=== PATIENT | female | born 2000 | race Caucasian/White ===

== ENCOUNTER → 2021-03-26 10:26 | Outpatient (CLI) | payer OTHER, SELFPAY ==
--- NOTE | 2021-03-26 10:29 | DI.US.S_ITS ---
PROCEDURE: US OB <= 14 WEEKS FETUS INDICATIONS: DATES OUTSIDE/PRIOR DATING DATA: Last menstrual period (LMP): Not known LMP-based estimated date of delivery (CRIS): Not applicable First dating scan (date and location): March 26, 2021 Estimated date of delivery (CRIS) from first dating scan: October 30, 2021 The calculations are made using the ultrasound CRIS of October 30, 2021 TECHNIQUE: Real-time scanning was performed of the fetus and maternal pelvic organs, with image documentation. Endovaginal scanning was also performed to better visualize the fetus and maternal ovaries. COMPARISON: None. FINDINGS: Embryo: Single living intrauterine identified. Yolk sac and pole are identified. Ben Arnold-rump length measures 2.2 centimeters corresponding to ultrasound estimated gestational age of 8 weeks 6 days. Small 3.2 x 2.0 x 0.5 and 1.3 x 0.9 x 0.9 centimeter periimplantational bleeds identified. Heart rate: 173 beats per minute Maternal organs: Probable left corpus luteal cyst. IMPRESSION: 1. Single living intrauterine with ultrasound estimated gestational age of 8 weeks 6 days corresponding to ultrasound CRIS of October 30, 2021. 2. Probable small left course pulse luteal cyst. Dictated by: Ruba Penaloza MD, PhD on 03/26/2021 at 12:10 We strive to produce accurate, complete, and clear reports of imaging services. To assist us in improving patient care, this report was composed using standard report templates and voice recognition software. Therefore, it may contain abnormal punctuation, misrecognitions, insertions and/or omissions. Occasional wrong-word or sound-alike substitutions may occur. Though we review the report and make efforts to correct it, we do recommend that the report be read carefully in proper context to recognize any text inaccuracies. Approved by: Ruba Penaloza MD, PhD on 03/26/2021 at 12:12
[2021-03-26 11:44] LABS: Add Manual Diff / Slide Review NO; Basophils Absolute Auto 0 /uL (0-100); Basophils Percent Auto 0.6 % (0-2); Eosinophils Absolute Auto 200 /uL (0-450); Eosinophils Percent Auto 2.5 % (2-4); Hematocrit 37.9 % (36-46); Hemoglobin 13.3 g/dL (12.0-16.0); Lymphocytes Absolute Auto 1500 /uL (1100-4500); Lymphocytes Percent Auto 18.5 % (25-40); Mean Corpuscular HGB Conc 35.1 % (30-36); Mean Corpuscular Hemoglobin 29.9 PG (26-34); Mean Corpuscular Volume 85.3 fL (80-100); Monocytes Absolute Auto 400 /uL (0-900); Monocytes Percent Auto 5.4 % (3-14); Neutrophils Absolute Auto 5900 /uL (1500-7000); Platelet Count 262 X10^3/uL (150-400); Red Blood Cell Count 4.45 X10^6/uL (4.0-5.2); Red Cell Distribution Width 13.3 % (11.6-14.8); White Blood Cell Count 8.1 X10^3/uL (4.5-11.0)
[2021-03-26 11:49] LABS: Appearance Urine UA SL CLOUDY; Bilirubin Urine UA NEGATIVE (NEGATIVE); Color Urine UA YELLOW; Glucose Urine UA NEGATIVE (Negative); Ketones Urine UA TRACE (NEGATIVE); Leukocyte Esterase Urine UA TRACE (NEGATIVE); Nitrite Urine UA NEGATIVE (Negative); Occult Blood Urine UA 1+ (Negative); Protein Urine UA TRACE (Negative); Specific Gravity Urine UA 1.025 (1.000-1.035); Urobilinogen Urine UA 0.2 E.U./dL (0.2)
[2021-03-26 11:53] LABS: pH Urine UA 5.5 (4.5-8.0)
[2021-03-26 12:01] LABS: Bacteria Urine Moderate (10-30); Culture Indicated Urine Specimen Cultured; Mucus Urine 2+ (Negative); RBC Urine 1-5/HPF (0-5/HPF); Squamous Epithelial Cell Urine 1-5 /HPF (0-5/HPF); WBC Urine 10-30/HPF (0-5/HPF)
[2021-03-26 15:09] LABS: Hepatitis B Surface Antigen NEGATIVE s/c (NEGATIVE); Rubella Antibody IgG 5.1 IU/mL (>15)
[2021-03-26 15:27] LABS: HIV 1 & 2 Ab/Ag 4th Gen Combo NEGATIVE (NEGATIVE); Hep C Virus Ab w/Reflex Quant NEGATIVE s/c (NEGATIVE)
[2021-03-27 07:15] LABS: Varicella IgG Antibody 245 index (Immune >165)
[2021-03-27 07:36] LABS: RPR Screen Non Reactive (Non Reactive)
== END ==
PROVIDERS: Referring Provider Obstetrics & Gynecology; Visit Provider Obstetrics & Gynecology
DX: Z36.87 Encounter for antenatal screening for uncertain dates (principal); Z3A.08 8 weeks gestation of pregnancy
CPT/HCPCS: 36415; 76801; 76817; 80055; 81003; 81015; 86787; 86803; 86850; 86900; 86901; 87086; 87389

== ENCOUNTER 2021-03-29 17:05 | Emergency (ER) | payer OTHER, SELFPAY ==
[2021-03-29] VITALS (10 sets, daily range): BP systolic 112–134; BP diastolic 65–88; PULSE 61–83; RESP 9–28; TEMP 36.5; O2SAT 95–100; BMI 26.1
[2021-03-29] MEDS: ONDANSETRON 4 MG/2 ML INJ IV (18:04)
[2021-03-29 18:05] LABS: Add Manual Diff / Slide Review NO; Basophils Absolute Auto 0 /uL (0-100); Basophils Percent Auto 0.3 % (0-2); Eosinophils Absolute Auto 200 /uL (0-450); Eosinophils Percent Auto 2.3 % (2-4); Lymphocytes Absolute Auto 1400 /uL (1100-4500); Lymphocytes Percent Auto 13.6 % (25-40); Mean Corpuscular HGB Conc 35.1 % (30-36); Mean Corpuscular Hemoglobin 29.7 PG (26-34); Mean Corpuscular Volume 84.5 fL (80-100); Monocytes Absolute Auto 500 /uL (0-900); Monocytes Percent Auto 4.8 % (3-14); Neutrophils Absolute Auto 8100 /uL (1500-7000); Platelet Count 284 X10^3/uL (150-400); Red Blood Cell Count 4.73 X10^6/uL (4.0-5.2); Red Cell Distribution Width 12.8 % (11.6-14.8); White Blood Cell Count 10.3 X10^3/uL (4.5-11.0)
--- NOTE | 2021-03-29 18:08 | PC.NURSE ---
Patient is about 8 weeks and reports she has been vomiting for the duration of . Recently saw OBGYN who prescribed doxylamine and B6 but has been unable to start prescription, tried another medication from [facility] which made nausea worse but is unsure of the name. Reports of 8 emesis today, 6 have had dark red thickness, provider was made aware of similar episodes at appt on 03/23 but patient reports episodes are happening more frequently.
[2021-03-29 18:11] LABS: Alanine Aminotransferase 11 IU/L (<35); Albumin 4.6 g/dL (3.5-5.0); Albumin Globulin Ratio 1.4 (1.0-2.8); Alkaline Phosphatase 57 U/L (38-126); Aspartate Aminotransferase 21 IU/L (14-36); BUN Creatinine Ratio 14.6 (6-22); Bilirubin Total 0.6 mg/dL (0.2-1.3); Blood Urea Nitrogen 7 mg/dL (7-17); Calcium 9.9 mg/dL (8.4-10.2); Carbon Dioxide 20 mmol/L (22-32); Chloride 106 mmol/L (98-107); Estimated Glomerular Filt Rate > 60.0 mL/min (>60); Globulin 3.2 g/dL (1.7-4.1); Glucose 88 mg/dL (70-100); HEMOLYSIS 29 (0-50); Potassium 4.2 mmol/L (3.4-5.1); Sodium 136 mmol/L (137-145); Total Protein 7.8 g/dL (6.3-8.2)
[2021-03-29 19:02] LABS: RBC Urine None Seen (0-5/HPF); Squamous Epithelial Cell Urine 10-30 /HPF (0-5/HPF); WBC Urine None Seen (0-5/HPF)
[2021-03-29 19:03] LABS: Amorphous Sediment Urine 2+; Bacteria Urine Many (>30); Culture Indicated Urine Cult Not Indicated; Mucus Urine 3+ (Negative)
--- NOTE | 2021-03-29 20:15 | ED.GIBLEED ---
HPI - GI Bleed General Chief complaint: GI Bleed Stated complaint: THROWING UP BLOOD AND DIZZY Time Seen by Provider: 03/29/21 20:13 Source: patient Mode of arrival: Ambulatory History of Present Illness HPI Narrative: Patient is a 20-year-old female currently 9 weeks presenting today with nausea vomiting. She says that she has been nauseous entire she has been vomiting intermittently today she threw up 8 times. She thought she saw some dark black stuff representing blood but denies any bright red emesis. She has some very mild by lateral upper abdominal discomfort but no lower abdominal pain or vaginal bleeding. She had ultrasound done on 03/26/2021 here at this hospital which does show an IUP. She denies any fever or chills. She still feels little dizzy and lightheaded. She was started on B6 supplements to help with her nausea which she says does not help. She has a 1st appointment with OBGYN. Related Data Home Medications Medication Instructions Recorded Confirmed doxylamine succinate 25 mg tablet 50 mg PO BEDTIME PRN tab 03/23/21 03/23/21 prenat.vits,ulices,pwa-nmzj-inudr 1 tab PO DAILY 03/23/21 03/23/21 pyridoxine (vitamin B6) 50 mg 50 mg PO DAILY 03/23/21 03/23/21 tablet Previous Rx's Medication Instructions Recorded ondansetron 4 mg disintegrating 4 mg PO Q8H PRN #10 tab 03/29/21 tablet Allergies Allergy/AdvReac Type Severity Reaction Status Date / Time No Known Drug Allergies Allergy Verified 03/23/21 14:00 Review of Systems Review of Systems Narrative: GENERAL: Denies chills, fatigue, malaise, fever, sweats, travel HEENT: Denies sinus pain, ear pain, sore throat, difficulty swallowing, neck pain RESPIRATORY: Denies dyspnea, cough, wheezing, hemoptysis, sputum. CARDIOVASCULAR: Denies chest pain, palpitations, orthopnea, edema GASTROINTESTINAL: See HPI : Denies dysuria, frequency, incontinence, hematuria, urinary retention, flank pain. MUSCULOSKELETAL: Denies weakness, joint pain, or bony pain SKIN: No rash, no erythema, no pruritus NEUROLOGIC: Denies weakness, dizziness, headache, numbness, change in speech, confusion PSYCHIATRIC: No concerning psychosocial issues. 12 point review of systems is negative except for those stated above and HPI Patient History Social History marital status: unmarried,single (living seperately for now, plans to move in) household members: none lives independently: Yes caregiver/support person: Yes housing: other ([employer]) pets and animals: No education level: other () occupational status: employed current occupational exposures/hazards: No travel history: over 6 months ago ([place] for 2 months) seatbelt use: always water heater temp set < 120 deg: Yes (will check) working smoke detector in home: Yes fire extinguisher in home: Yes carbon monox detector in home: Yes firearms in home: No do you feel safe at home: Yes Smoking Status: Former smoker alcohol intake: former substance use type: does not use well-balanced diet: daily or most days daily servings fruits/ve-1 caffeine: No eating out: 1-3 times/week Type(s) of exercise: walking Smoking Status: Former smoker Substance Use Type: does not use Exam Initial Vital Signs Initial Vital Signs: Vital Signs Temperature 97.7 F 03/29/21 17:28 Pulse Rate 81 03/29/21 17:28 Respiratory Rate 18 03/29/21 17:28 Blood Pressure 134/88 03/29/21 17:28 Pulse Oximetry 98 03/29/21 17:28 GENERAL: Alert 20-year-old femaleand in no acute distress. HEENT: Head atraumatic,EOMI, pupils reactive, face symmetric, [moist] mucous membranes CARDIOVASCULAR: Regular rate and rhythm without murmurs, rubs or gallops. RESPIRATORY: Breath sounds equal bilaterally, no wheezes rales or rhonchi. ABDOMEN: Soft, nontender. Normoactive bowel sounds all 4 quadrants. No guarding or rebound. : No CVA tenderness EXTREMITIES: Normal range of motion, no clubbing or edema. Neurovascularly intact NEUROLOGICAL: Alert and oriented x4.Normal gait and speech. SKIN: Warm, dry, no laceration, no petechiae, no rashes or lesions. Course Orders Ordered: ED Orders 03/29/21 17:52 Complete Blood Count AUTO DIFF Stat Comprehensive Metabolic Panel Stat 03/29/21 18:17 Urine Microscopic Stat Discontinued Medications Famotidine (Famotidine 20 Mg/2 Ml Vial) 20 mg IV NOW RAYMOND Last Admin: 03/29/21 20:53 Dose: 20 mg Documented by: EVON Sodium Chloride (Normal Saline 0.9%) 1,000 mls @ 1,000 mls/hr IV BOLUS ONE Stop: 03/29/21 21:24 Last Admin: 03/29/21 20:53 Dose: 1,000 mls/hr Documented by: EVON Ondansetron HCl (Ondansetron 4 Mg/2 Ml Inj) 4 mg IV NOW ONE Stop: 03/29/21 17:39 Last Admin: 03/29/21 18:04 Dose: 4 mg Documented by: NOAH Ondansetron HCl (Ondansetron 4 Mg Odt Prepack) 1 bottle MISC SEEINSTR ONE Stop: 03/29/21 21:43 Last Admin: 03/29/21 21:46 Dose: 1 bottle Documented by: NOAH Vital Signs Vital signs: Vital Signs - 8 hr 03/29/21 17:28 03/29/21 18:03 03/29/21 18:06 Temperature 97.7 F Pulse Rate 81 83 76 Respiratory Rate 18 28 H 9 L Blood Pressure 134/88 124/83 Pulse Oximetry 98 97 03/29/21 18:30 03/29/21 19:00 03/29/21 19:30 Temperature Pulse Rate 64 65 66 Respiratory Rate 15 26 H 21 Blood Pressure 121/74 119/70 112/66 Pulse Oximetry 100 100 95 03/29/21 20:00 03/29/21 20:30 03/29/21 21:00 Temperature Pulse Rate 66 69 61 Respiratory Rate 15 24 17 Blood Pressure 125/71 128/69 128/66 Pulse Oximetry 100 100 100 03/29/21 21:30 Temperature Pulse Rate 63 Respiratory Rate 12 Blood Pressure 120/65 Pulse Oximetry 100 MDM - GI Bleed Lab Data Result diagrams: 03/29/21 17:52 03/29/21 17:52 Labs: Lab Results 03/29/21 03/29/21 03/29/21 Range/Units 17:52 17:52 18:17 WBC 10.3 (4.5-11.0) X10^3/uL RBC 4.73 (4.0-5.2) X10^6/uL Hgb 14.0 (12.0-16.0) g/dL Hct 40.0 (36-46) % MCV 84.5 (80-100) fL MCH 29.7 (26-34) PG MCHC 35.1 (30-36) % RDW 12.8 (11.6-14.8) % Plt Count 284 (150-400) X10^3/uL Neut % (Auto) 79.0 H (50-75) % Lymph % (Auto) 13.6 L (25-40) % [place] % (Auto) 4.8 (3-14) % Eos % (Auto) 2.3 (2-4) % Baso % (Auto) 0.3 (0-2) % Neut # (Auto) 8100 H (5125-6325) /uL Lymph # (Auto) 1400 (1883-1498) /uL [place] # (Auto) 500 (0-900) /uL Eos # (Auto) 200 (0-450) /uL Baso # (Auto) 0 (0-100) /uL Sodium 136 L (137-145) mmol/L Potassium 4.2 (3.4-5.1) mmol/L Chloride 106 (98-107) mmol/L Carbon Dioxide 20 L (22-32) mmol/L BUN 7 (7-17) mg/dL Creatinine 0.48 L (0.52-1.04) mg/dL Estimated GFR > 60.0 (>60) mL/min BUN/Creatinine Ratio 14.6 (6-22) Glucose 88 (70-100) mg/dL Calcium 9.9 (8.4-10.2) mg/dL Total Bilirubin 0.6 (0.2-1.3) mg/dL AST 21 (14-36) IU/L ALT 11 (<35) IU/L Alkaline Phosphatase 57 (38-126) U/L Total Protein 7.8 (6.3-8.2) g/dL Albumin 4.6 (3.5-5.0) g/dL Globulin 3.2 (1.7-4.1) g/dL Albumin/Globulin Ratio 1.4 (1.0-2.8) Urine RBC None seen (0-5/HPF) Urine WBC None seen (0-5/HPF) Ur Squamous Epith Cells 10-30 /hpf H D (0-5/HPF) Amorphous Sediment 2+ Urine Bacteria Many (>30) H (None) Urine Mucus 3+ H (Negative) Ur Culture Indicated? Cult not indicated Urine Dip Bedside Urine Glucose Negative Bedside Urine Bilirubin - Negative Bedside Urine Ketone +++ 80 Urine Specific [place] 1.030 Bedside Urine Occult Blood +/- Bedside Urine pH 5.5 Bedside Urine Protein + 30 Bedside Urine Urobilinogen - Negative Bedside Urine Nitrite - Negative Bedside Urine Leukocytes - Negative Esterase MDM Narrative Medical decision making narrative: Patient's room feeling much better after fluids antiemetics in antacid medication. No longer having any abdominal pain no need to repeat ultrasound was done a few days ago. Symptoms are most consistent with hyperemesis gravidarum. She is requesting something more for nausea I will give her Zofran I have discussed with her possible side effects and she understands. Discharge Plan Departure Patient Disposition: Home Clinical Impression: Hyperemesis gravidarum Instructions: DI for Hyperemesis Gravidarum Activity Restrictions/Additional Instructions: 1) You have been diagnosed with hyperemesis gravidarum 2) What to do: Drink frequent but small amounts of fluids. I recommend Gatorade or a Gatorade-like product, as it has small amounts of sugar and salts that improve fluid retention. 3) Take medications as directed--> SENT TO [facility] [place] Zofran 4 mg every 8 hours if needed for nausea or vomiting, please try to take paroxetine 1st 4) Follow up with your primary care provider in 2-3 days Please follow-up with OBGYN as scheduled 5) Return to ER if you should have any new or worsening symptoms such as, unable to hold down fluids despite use of anti-nausea medications and the small volume oral rehydration strategy. Prescriptions: New ondansetron 4 mg tablet,disintegrating 4 mg PO Q8H PRN (Reason: nausea and vomiting) Qty: 10 0RF No Action prenat.vits,ulices,yun-kyfh-lbyht Tablet 1 tab PO DAILY 0RF doxylamine succinate 25 mg tablet 50 mg PO BEDTIME PRN0RF pyridoxine (vitamin B6) 50 mg tablet 50 mg PO DAILY 0RF Referrals: Miscellaneous,Doctor, MD [Primary Care Provider] -
[2021-03-29] MEDS: FAMOTIDINE 20 MG/2 ML VIAL IV (20:53)
[2021-03-29] MEDS: SODIUM CHLORIDE 0.9% 1,000 ML 1000 ML IV (20:53)
[2021-03-29] MEDS: ONDANSETRON 4 MG ODT PREPACK 1 BOTTLE MISC (21:46)
== END 2021-03-29 21:52 | disposition home or self-care (01) ==
PROVIDERS: Emergency Medicine; Emergency Provider Emergency Medicine
DX: O21.0 Mild hyperemesis gravidarum (principal); Z3A.09 9 weeks gestation of pregnancy; K92.0 Hematemesis
CPT/HCPCS: 36415; 80053; 81003; 81015; 85025; 96361; 96374; 96375; 99284; J2405

== ENCOUNTER → 2021-04-14 17:08 | Outpatient (CLI) | payer OTHER, SELFPAY ==
[2021-04-14 17:34] LABS: COVID19 -Nasal RAPID POSITIVE (Negative)
== END ==
PROVIDERS: Referring Provider Nurse Practitioner Family; Visit Provider Nurse Practitioner Family
DX: U07.1 COVID-19 (principal); Z20.822 Contact with and (suspected) exposure to COVID-19
CPT/HCPCS: 87635

== ENCOUNTER → 2021-05-29 17:01 | Outpatient (CLI) | payer OTHER, SELFPAY ==
[2021-06-01 15:26] LABS: Calc Gestational Age Ultrasound (.); Estriol, Free 1.43 ng/mL (.); Inhibin A, Dimeric 138.48 pg/mL (.); Inhibin A, MoM 0.84 (.); Maternal Ethnicity Caucasian (.); Maternal Weight 141 lbs (.); Number of Fetuses No (.); OSBR Risk 1 IN 10000 (.); Results Report (.); Test Results *Screen Negative* (.); hCG, MoM 1.46 (.); hCG, Serum 44689 mIU/mL (.)
== END ==
PROVIDERS: Referring Provider Obstetrics & Gynecology; Visit Provider Obstetrics & Gynecology
DX: Z34.02 Encounter for supervision of normal first pregnancy, second trimester (principal); Z3A.18 18 weeks gestation of pregnancy
CPT/HCPCS: 36415; 82105; 82677; 84702; 86336

== ENCOUNTER 2021-06-18 11:18 | Emergency (ER) | payer OTHER, SELFPAY ==
[2021-06-18] VITALS (15 sets, daily range): BP systolic 96–123; BP diastolic 50–77; PULSE 70–101; RESP 18; TEMP 37; O2SAT 96–100
--- NOTE | 2021-06-18 11:28 | DI.RAD.S_ITS ---
PROCEDURE: XR CHEST 1V INDICATIONS: chest pain TECHNIQUE: One view of the chest was acquired. COMPARISON: None. FINDINGS: Surgical changes and devices: None. Lungs and pleura: Lungs are clear. No pleural effusions or pneumothorax. Mediastinum: Mediastinal contours appear normal. Heart size is normal. Bones and chest wall: No suspicious bony lesions. Overlying soft tissues appear unremarkable. IMPRESSION: No acute cardiopulmonary abnormality. Dictated by: Howie Da Silva M.D. on 06/18/2021 at 12:22 Approved by: Howie Da Silva M.D. on 06/18/2021 at 12:22
[2021-06-18] MEDS: SODIUM CHLORIDE 0.9% 1,000 ML 1000 ML IV ×2 (11:45→13:47)
[2021-06-18 11:47] LABS: Add Manual Diff / Slide Review NO; Basophils Absolute Auto 0 /uL (0-100); Basophils Percent Auto 0.3 % (0-2); Eosinophils Absolute Auto 100 /uL (0-450); Eosinophils Percent Auto 1.2 % (2-4); Hematocrit 35.7 % (36-46); Hemoglobin 11.8 g/dL (12.0-16.0); Lymphocytes Absolute Auto 1500 /uL (1100-4500); Lymphocytes Percent Auto 12.7 % (25-40); Mean Corpuscular HGB Conc 33.2 % (30-36); Mean Corpuscular Hemoglobin 29.4 PG (26-34); Mean Corpuscular Volume 88.5 fL (80-100); Monocytes Absolute Auto 700 /uL (0-900); Monocytes Percent Auto 6.2 % (3-14); Neutrophils Absolute Auto 9500 /uL (1500-7000); Neutrophils Percent Auto 79.6 % (50-75); Platelet Count 299 X10^3/uL (150-400); Red Blood Cell Count 4.04 X10^6/uL (4.0-5.2); Red Cell Distribution Width 13.3 % (11.6-14.8); White Blood Cell Count 11.9 X10^3/uL (4.5-11.0)
[2021-06-18 11:57] LABS: HEMOLYSIS < 15 (0-50); Sodium 135 mmol/L (137-145)
[2021-06-18 12:00] LABS: Alanine Aminotransferase 17 IU/L (<35); Albumin 4.2 g/dL (3.5-5.0); Albumin Globulin Ratio 1.2 (1.0-2.8); Alkaline Phosphatase 60 U/L (38-126); Aspartate Aminotransferase 23 IU/L (14-36); BUN Creatinine Ratio 21.3 (6-22); Bilirubin Total 0.2 mg/dL (0.2-1.3); Blood Urea Nitrogen 10 mg/dL (7-17); Calcium 9.4 mg/dL (8.4-10.2); Carbon Dioxide 26 mmol/L (22-32); Chloride 104 mmol/L (98-107); Creatine Kinase < 20 U/L (30-135); Estimated Glomerular Filt Rate > 60.0 mL/min (>60); Globulin 3.6 g/dL (1.7-4.1); Glucose 73 mg/dL (70-100); Lipase 123 U/L (23-300); Magnesium 1.8 mg/dL (1.6-2.3); Total Protein 7.8 g/dL (6.3-8.2)
[2021-06-18 12:11] LABS: Troponin I < 0.012 ng/mL (0.01-0.034)
--- NOTE | 2021-06-18 13:43 | DI.US.S_ITS ---
PROCEDURE: US OB LIMITED INDICATIONS: PAIN OUTSIDE/PRIOR DATING DATA: Last menstrual period (LMP): Uncertain LMP-based estimated date of delivery (CRIS): Uncertain First dating scan (date and location): 03/26/2021 Estimated date of delivery (CRIS) from first dating scan: 10/30/2021. The calculations are made using the ultrasound CRIS of 10/30/2021. TECHNIQUE: Real-time scanning was performed of the fetus, with image documentation. COMPARISON: None. FINDINGS: A single living intrauterine gestation is present. Presentation: Vertex. Placenta: Placental position is posterior, without previa. Amniotic fluid index: 15.3 cm, normal range is 5-24 cm. heart rate: 136 beats per minute. Maternal cervical canal: 3.2 cm long. Normal lower limit is 2.5 cm. Estimated gestational age from initial scan: 20 weeks 6 days. IMPRESSION: Single live intrauterine . No gross abnormality identified. Dictated by: Howie Da Silva M.D. on 06/18/2021 at 14:45 Approved by: Howie Da Silva M.D. on 06/18/2021 at 14:47
--- NOTE | 2021-06-18 13:43 | ED_ITS ---
HPI - Dizziness General Chief Complaint: Syncope Stated Complaint: Dizziness for 2 days Time Seen by Provider: 06/18/21 13:38 Source: patient Mode of arrival: Ambulatory History of Present Illness HPI Narrative: 20-year-old female who is 21 weeks presenting with dizziness lightheadedness. She says she feels dizzy and lightheaded every time she stands up his she is also having some mild right upper quadrant pain. She has been feeling nauseous throughout her the actually has been getting a little bit better. She has thrown up a couple of times. She has not had any vaginal bleeding. Fever or chills. She has not passed out. She has been able to keep mostly water down Related Data Home Medications Medication Instructions Recorded Confirmed doxylamine succinate 25 mg tablet 50 mg PO BEDTIME PRN tab 03/23/21 05/29/21 prenat.vits,ulices,sld-scft-dwibb 1 tab PO DAILY 03/23/21 05/29/21 pyridoxine (vitamin B6) 50 mg 50 mg PO DAILY 03/23/21 05/29/21 tablet Previous Rx's Medication Instructions Recorded ondansetron 4 mg disintegrating 4 mg PO Q6H PRN #20 tab 04/01/21 tablet Allergies Allergy/AdvReac Type Severity Reaction Status Date / Time No Known Drug Allergies Allergy Verified 06/18/21 11:30 Review of Systems Review of Systems Narrative: GENERAL: Denies chills, fatigue, malaise, fever, sweats, travel HEENT: Denies sinus pain, ear pain, sore throat, difficulty swallowing, neck pain RESPIRATORY: Denies dyspnea, cough, wheezing, hemoptysis, sputum. CARDIOVASCULAR: Denies chest pain, palpitations, orthopnea, edema GASTROINTESTINAL: See HPI : Denies dysuria, frequency, incontinence, hematuria, urinary retention, flank pain. MUSCULOSKELETAL: Denies weakness, joint pain, or bony pain SKIN: No rash, no erythema, no pruritus NEUROLOGIC: Denies weakness, dizziness, headache, numbness, change in speech, confusion PSYCHIATRIC: No concerning psychosocial issues. 12 point review of systems is negative except for those stated above and HPI Patient History Social History marital status: unmarried,single (living seperately for now, plans to move in) household members: none lives independently: Yes caregiver/support person: Yes housing: other ([employer]) pets and animals: No education level: other () occupational status: employed current occupational exposures/hazards: No travel history: over 6 months ago ([place] for 2 months) seatbelt use: always water heater temp set < 120 deg: Yes (will check) working smoke detector in home: Yes fire extinguisher in home: Yes carbon monox detector in home: Yes firearms in home: No do you feel safe at home: Yes Smoking Status: Former smoker alcohol intake: former substance use type: does not use well-balanced diet: daily or most days daily servings fruits/ve-1 caffeine: No eating out: 1-3 times/week Type(s) of exercise: walking Smoking Status: Former smoker Substance Use Type: does not use Exam Initial Vital Signs Initial Vital Signs: Vital Signs Temperature 98.6 F 06/18/21 11:25 Pulse Rate 86 06/18/21 11:25 Respiratory Rate 18 06/18/21 11:25 Blood Pressure 123/77 06/18/21 11:25 Pulse Oximetry 100 06/18/21 11:25 GENERAL: Well-appearing, well-nourished and in no acute distress. HEENT: Head atraumatic,EOMI, pupils reactive, face symmetric, moist mucous membranes CARDIOVASCULAR: Regular rate and rhythm without murmurs, rubs or gallops. RESPIRATORY: Breath sounds equal bilaterally, no wheezes rales or rhonchi. ABDOMEN: Soft, gravid tender right upper quadrant no guarding or rebound : No CVA tenderness EXTREMITIES: Normal range of motion, no clubbing or edema. Neurovascularly intact NEUROLOGICAL: Alert and oriented x4. Ambulatory to the restroom without diffi culty SKIN: Warm, dry, no laceration, no petechiae, no rashes or lesions. Course Orders Ordered: ED Orders 06/18/21 11:28 XR chest 1V Stat EKG-12 Lead Stat 06/18/21 11:40 Complete Blood Count AUTO DIFF Stat Comprehensive Metabolic Panel Stat Lipase Stat Magnesium Stat Troponin & CK Cardiac Panel Stat 06/18/21 13:43 US OB limited Stat US abdomen limited Stat Discontinued Medications Sodium Chloride (Normal Saline 0.9%) 1,000 mls @ 1,000 mls/hr IV BOLUS ONE Stop: 06/18/21 12:27 Last Infusion: 06/18/21 13:19 Dose: 0 mls/hr Documented by: Admin: 06/18/21 11:45 Dose: 1,000 mls/hr Documented by: CHASITY Sodium Chloride (Normal Saline 0.9%) 1,000 mls @ 1,000 mls/hr IV BOLUS ONE Stop: 06/18/21 14:42 Last Infusion: 06/18/21 15:08 Dose: 0 mls/hr Documented by: Admin: 06/18/21 13:47 Dose: 1,000 mls/hr Documented by: EVON Vital Signs Vital signs: Vital Signs - 8 hr 06/18/21 11:46 06/18/21 12:00 06/18/21 13:05 Pulse Rate 99 H 88 Respiratory Rate 18 Blood Pressure 117/57 L 114/55 L Pulse Oximetry 96 98 99 06/18/21 13:06 06/18/21 13:30 06/18/21 13:49 Pulse Rate 90 78 73 Respiratory Rate 18 18 Blood Pressure 112/58 L 105/58 L 104/58 L Pulse Oximetry 99 100 100 06/18/21 14:00 06/18/21 14:30 06/18/21 14:45 Pulse Rate 70 81 92 H Respiratory Rate 18 Blood Pressure 96/50 L 109/59 L Pulse Oximetry 100 100 100 06/18/21 15:00 06/18/21 15:05 06/18/21 15:30 Pulse Rate 88 84 77 Respiratory Rate 18 18 Blood Pressure 112/59 L 114/56 L Pulse Oximetry 100 100 99 06/18/21 16:00 Pulse Rate 79 Respiratory Rate 18 Blood Pressure 112/57 L Pulse Oximetry 100 MDM - Dizziness Lab Data Result diagrams: 06/18/21 11:40 06/18/21 11:40 Labs: Lab Results 06/18/21 06/18/21 Range/Units 11:40 11:40 WBC 11.9 H (4.5-11.0) X10^3/uL RBC 4.04 (4.0-5.2) X10^6/uL Hgb 11.8 L (12.0-16.0) g/dL Hct 35.7 L (36-46) % MCV 88.5 (80-100) fL MCH 29.4 (26-34) PG MCHC 33.2 (30-36) % RDW 13.3 (11.6-14.8) % Plt Count 299 (150-400) X10^3/uL Neut % (Auto) 79.6 H (50-75) % Lymph % (Auto) 12.7 L (25-40) % [place] % (Auto) 6.2 (3-14) % Eos % (Auto) 1.2 L (2-4) % Baso % (Auto) 0.3 (0-2) % Neut # (Auto) 9500 H (1473-6588) /uL Lymph # (Auto) 1500 (3989-2461) /uL [place] # (Auto) 700 (0-900) /uL Eos # (Auto) 100 (0-450) /uL Baso # (Auto) 0 (0-100) /uL Sodium 135 L (137-145) mmol/L Potassium 4.0 (3.4-5.1) mmol/L Chloride 104 (98-107) mmol/L Carbon Dioxide 26 (22-32) mmol/L BUN 10 (7-17) mg/dL Creatinine 0.47 L (0.52-1.04) mg/dL Estimated GFR > 60.0 (>60) mL/min BUN/Creatinine Ratio 21.3 (6-22) Glucose 73 (70-100) mg/dL Calcium 9.4 (8.4-10.2) mg/dL Magnesium 1.8 (1.6-2.3) mg/dL Total Bilirubin 0.2 (0.2-1.3) mg/dL AST 23 (14-36) IU/L ALT 17 (<35) IU/L Alkaline Phosphatase 60 (38-126) U/L Total Creatine Kinase < 20 L (30-135) U/L CK-MB (CK-2) TNP CK-MB (CK-2) Rel Index TNP Troponin I < 0.012 (0.01-0.034) ng/mL Total Protein 7.8 (6.3-8.2) g/dL Albumin 4.2 (3.5-5.0) g/dL Globulin 3.6 (1.7-4.1) g/dL Albumin/Globulin Ratio 1.2 (1.0-2.8) Lipase 123 (23-300) U/L Urine Dip Bedside Urine Glucose Negative Bedside Urine Bilirubin - Negative Bedside Urine Ketone - Negative Urine Specific [place] 1.015 Bedside Urine Occult Blood - Negative Bedside Urine pH 7.5 Bedside Urine Protein - Negative Bedside Urine Urobilinogen - Negative Bedside Urine Nitrite - Negative Bedside Urine Leukocytes - Negative Esterase Imaging Data US - abdomen: Radiologist's Impression: PROCEDURE:? US ABDOMEN LIMITED ? INDICATIONS:? RUQ PAIN ? TECHNIQUE:? Real-time scanning was performed of the abdominal and retroperitoneal organs, with image documentation.? ? COMPARISON:? None. ? FINDINGS:? ? Liver:? The liver is normal with no intrahepatic biliary ductal dilatation or mass. ? Gallbladder:? Normal with no stones.? No wall thickening or pericholecystic fluid. ? Biliary ducts:? Common bile duct is normal measuring 2.9 mm. ? Pancreas:? Visualized portions of the pancreas are sonographically normal.? ? Kidneys:? The right kidney measures 11.0 cm in length.? Cortical thickness is 1.9 cm.? There is moderate hydronephrosis of the right kidney.? A right ureteral jet is seen. ? IMPRESSION:? Moderate right hydronephrosis likely related to gravid state. ? ? Dictated by: Howie Da Silva M.D. on 06/18/2021 at 14:42 ? ? US - OB: Radiologist's Impression: PROCEDURE:? US OB LIMITED ? INDICATIONS:? PAIN ? OUTSIDE/PRIOR DATING DATA:? Last menstrual period (LMP):? Uncertain LMP-based estimated date of delivery (CRIS):? Uncertain First dating scan (date and location):? 03/26/2021 Estimated date of delivery (CRIS) from first dating scan:? 10/30/2021. The calculations are made using the ultrasound CRIS of 10/30/2021.? ? TECHNIQUE: Real-time scanning was performed of the fetus, with image documentation.? ? COMPARISON:? None. ? FINDINGS:? A single living intrauterine gestation is present.? Presentation:? Vertex.? Placenta:? Placental position is posterior, without previa.? ? Amniotic fluid index:? 15.3 cm, normal range is 5-24 cm. heart rate:? 136 beats per minute.? Maternal cervical canal:? 3.2 cm long.? Normal lower limit is 2.5 cm.? Estimated gestational age from initial scan:? 20 weeks 6 days.? ? ? IMPRESSION:? Single live intrauterine .? No gross abnormality identified. ? ? Dictated by: Howie Da Silva M.D. on 06/18/2021 at 14:45 ? ? Approved by: Howie Da Silva M.D. on 06/18/2021 at 14:47 ? ECG Data Interpretation: Normal sinus rhythm rate 90 p.r. interval 122 QRS [address] changes or T- wave inversions MDM Narrative Medical decision making narrative: Patient has received 2 L of IV fluids she is feeling a bit better. She has not passed out. Blood work is overall reassuring no sign of infection. She is tolerating fluid as well. Discharge Plan Departure Patient Disposition: Home Clinical Impression: Abdominal pain affecting Instructions: DI for Syncope in Adults (Fainting), DI for Abdominal Pain-Adult Activity Restrictions/Additional Instructions: *You have been diagnosed with abdominal pain and *What to do: Increase fluid intake it may be causing some of her dizziness. Blood work and ultrasound are reassuring. No sign of infection *Continue to take medications as directed *Follow up with your primary care provider in 2-3 days or call [phone] *Return to ER if you should have vaginal bleeding increased pain passing out dizziness or any new, worsening or concerning symptoms Prescriptions: No Action ondansetron 4 mg tablet,disintegrating 4 mg PO Q6H PRN (Reason: nausea and vomiting) Qty: 20 4RF prenat.vits,ulices,ghs-jxef-jmmtn Tablet 1 tab PO DAILY 0RF doxylamine succinate 25 mg tablet 50 mg PO BEDTIME PRN0RF pyridoxine (vitamin B6) 50 mg tablet 50 mg PO DAILY 0RF Referrals: Gustavo Metz MD [Primary Care Provider] -
--- NOTE | 2021-06-18 13:43 | DI.US.S_ITS ---
PROCEDURE: US ABDOMEN LIMITED INDICATIONS: RUQ PAIN TECHNIQUE: Real-time scanning was performed of the abdominal and retroperitoneal organs, with image documentation. COMPARISON: None. FINDINGS: Liver: The liver is normal with no intrahepatic biliary ductal dilatation or mass. Gallbladder: Normal with no stones. No wall thickening or pericholecystic fluid. Biliary ducts: Common bile duct is normal measuring 2.9 mm. Pancreas: Visualized portions of the pancreas are sonographically normal. Kidneys: The right kidney measures 11.0 cm in length. Cortical thickness is 1.9 cm. There is moderate hydronephrosis of the right kidney. A right ureteral jet is seen. IMPRESSION: Moderate right hydronephrosis likely related to gravid state. Dictated by: Howie Da Silva M.D. on 06/18/2021 at 14:42 Approved by: Howie Da Silva M.D. on 06/18/2021 at 14:44
--- NOTE | 2021-06-18 13:51 | PC.NURSE ---
eating snack and drinking tolerating po well
--- NOTE | 2021-06-18 15:07 | PC.NURSE ---
up to restroom steady gate, reports feeling better than previous attempts prior to 2 liters ns.
== END 2021-06-18 16:03 | disposition home or self-care (01) ==
PROVIDERS: Emergency Provider Emergency Medicine; PCP Family Medicine
DX: O26.892 Other specified pregnancy related conditions, second trimester (principal); R10.11 Right upper quadrant pain; Z87.891 Personal history of nicotine dependence; Z3A.21 21 weeks gestation of pregnancy
CPT/HCPCS: 36415; 71045; 76705; 76815; 80053; 81003; 82550; 83690; 83735; 84484; 85025; 93005; 93010; 96360; 96361; 99284

== ENCOUNTER 2021-07-03 15:23 | Outpatient (CLI) | payer OTHER, SELFPAY ==
--- NOTE | 2021-07-03 16:33 | DI.US.S_ITS ---
PROCEDURE: US OB LIMITED INDICATIONS: CERVICAL LENGTH OUTSIDE/PRIOR DATING DATA: Last menstrual period (LMP): Un known LMP-based estimated date of delivery (CRIS): Unknown First dating scan (date and location): 03/26/2021 Estimated date of delivery (CRIS) from first dating scan: 10/30/2021 TECHNIQUE: Real-time scanning was performed of the fetus for biophysical profile, with image documentation. Color and pulse Doppler interrogation was also performed of the umbilical artery near its insertion into the placenta. Endovaginal scanning: Not indicated COMPARISON: [facility], , OB LIMITED, 06/18/2021, 14:03. FINDINGS: General: A single living intrauterine gestation is present. Presentation: Transverse with head towards maternal left side. Placenta: Placental position is posterior, without hiram placenta previa. Low lying placenta is seen with inferior tip approximately 1.6 cm from internal os. Amniotic fluid index: 15.7 cm, normal range is 5-24 cm. Single deepest vertical pocket is 5.7 cm. heart rate: 143 beats per minute. Maternal cervical canal: Closed and measures 3-3.5 cm long. Normal lower limit is 2.5 cm. Estimated gestational age from initial scan: 23 weeks, 0 day. IMPRESSION: 1. Single live intrauterine gestation with fetus in transverse presentation. heart rate is 143 beats per minute. Normal amount of amniotic fluid. 2. Cervix is closed, cervical canal measures between 3-3.5 cm in length. 3. Low lying placenta as above. Continued sonographic follow-up is recommended. We strive to produce accurate, complete, and clear reports of imaging services. To assist us in improving patient care, this report was composed using standard report templates and voice recognition software. Therefore, it may contain abnormal punctuation, insertions and/or omissions. Occasional wrong-word or sound-alike substitutions may occur. Though we review the report and make efforts to correct it, we do recommend that the report be read carefully in proper context to recognize any text inaccuracies. Dictated by: Wilton Armenta M.D. on 07/03/2021 at 17:24 Approved by: Wilton Armenta M.D. on 07/03/2021 at 17:27
[2021-07-03 16:37] LABS: Appearance Urine UA CLEAR; Bilirubin Urine UA NEGATIVE (NEGATIVE); Color Urine UA YELLOW; Glucose Urine UA NEGATIVE (Negative); Ketones Urine UA NEGATIVE (NEGATIVE); Leukocyte Esterase Urine UA NEGATIVE (NEGATIVE); Nitrite Urine UA NEGATIVE (Negative); Occult Blood Urine UA NEGATIVE (Negative); Protein Urine UA TRACE (Negative); Specific Gravity Urine UA 1.025 (1.000-1.035); Urobilinogen Urine UA 0.2 E.U./dL (0.2)
[2021-07-03 16:38] LABS: RBC Urine None Seen (0-5/HPF); Squamous Epithelial Cell Urine 1-5 /HPF (0-5/HPF); WBC Urine 1-5/HPF (0-5/HPF)
[2021-07-03 16:39] LABS: Amorphous Sediment Urine 1+; Bacteria Urine Moderate (10-30); Calcium Oxalate Crystals Urine Moderate; Culture Indicated Urine Specimen Cultured; Mucus Urine 1+ (Negative)
[2021-07-03 17:19] LABS: Fetal Fibronectin Negative
--- NOTE | 2021-07-03 17:34 | P.TNLD_ITS ---
Visit Information Visit Information Date of evaluation: 07/03/21 Primary OB Provider: Tomás Metz Reason for Evaluation: Yes pre-term labor [facility] Social History marital status: unmarried,single (living seperately for now, plans to move in) household members: none lives independently: Yes caregiver/support person: Yes housing: other ([employer]) pets and animals: No education level: other () occupational status: employed current occupational exposures/hazards: No travel history: over 6 months ago ([place] for 2 months) seatbelt use: always water heater temp set < 120 deg: Yes (will check) working smoke detector in home: Yes fire extinguisher in home: Yes carbon monox detector in home: Yes firearms in home: No do you feel safe at home: Yes Smoking Status: Former smoker alcohol intake: former substance use type: does not use well-balanced diet: daily or most days daily servings fruits/ve-1 caffeine: No eating out: 1-3 times/week Type(s) of exercise: walking Objective Labs Labs: Laboratory Results - last 24 hr 07/03/21 07/03/21 16:00 16:45 Urine Color Yellow Urine Appearance Clear Urine pH 6.0 Ur Specific [place] 1.025 Urine Protein Trace H Urine Glucose (UA) Negative Urine Ketones Negative Urine Occult Blood Negative Urine Nitrate Negative Urine Bilirubin Negative Urine Urobilinogen 0.2 Ur Leukocyte Esterase Negative Urine RBC None seen Urine WBC 1-5/hpf Ur Squamous Epith Cells 1-5 /hpf D Calcium Oxalate Crystal Moderate H Amorphous Sediment 1+ Urine Bacteria Moderate (10-30) H Urine Mucus 1+ H Ur Culture Indicated? Specimen cultured Fibronectin Negative
== END 2021-07-03 17:45 | disposition home or self-care (01) ==
LOC: LABOR 15:58 → OB 07-05 12:38
PROVIDERS: PCP Family Medicine; Referring Provider Obstetrics & Gynecology; Visit Provider Obstetrics & Gynecology
DX: O26.892 Other specified pregnancy related conditions, second trimester (principal); Z3A.23 23 weeks gestation of pregnancy
CPT/HCPCS: 59025; 59050; 76815; 76819; 76820; 81001; 82731; 87086; G0378; G0379

== ENCOUNTER → 2021-07-21 10:25 | Outpatient (CLI) | payer OTHER, SELFPAY ==
[2021-07-21 12:22] LABS: Hematocrit 34.7 % (36-46); Hemoglobin 11.4 g/dL (12.0-16.0)
[2021-07-21 13:03] LABS: GTT (PREG) 1 Hour PP 50gm Dose 105 mg/dL (76-139)
== END ==
PROVIDERS: Referring Provider Obstetrics & Gynecology; Visit Provider Obstetrics & Gynecology
DX: Z34.02 Encounter for supervision of normal first pregnancy, second trimester (principal); Z3A.22 22 weeks gestation of pregnancy
CPT/HCPCS: 36415; 82950; 85014; 85018

== ENCOUNTER → 2021-10-06 13:42 | Outpatient (CLI) | payer OTHER, SELFPAY ==
[2021-10-07 13:12] LABS: Strep Grp B PCR NEG for Grp B Strep
== END ==
PROVIDERS: Visit Provider Obstetrics & Gynecology
DX: Z34.03 Encounter for supervision of normal first pregnancy, third trimester (principal); Z3A.36 36 weeks gestation of pregnancy
CPT/HCPCS: 87653

== ENCOUNTER 2021-10-29 09:45 | Observation (INO) | payer OTHER, SELFPAY ==
[2021-10-29 10:48] LABS: Protein (Total) Urine Random 11 mg/dL (0-12); Protein Creatinine Ratio Urine 0.14 GRAM/24H
[2021-10-29 12:10] LABS: Add Manual Diff / Slide Review NO; Basophils Absolute Auto 0 /uL (0-100); Basophils Percent Auto 0.4 % (0-2); Eosinophils Absolute Auto 400 /uL (0-450); Eosinophils Percent Auto 3.1 % (2-4); Hematocrit 29.5 % (36-46); Hemoglobin 9.4 g/dL (12.0-16.0); Lymphocytes Absolute Auto 1600 /uL (1100-4500); Lymphocytes Percent Auto 14.2 % (25-40); Mean Corpuscular HGB Conc 32.1 % (30-36); Mean Corpuscular Hemoglobin 23.4 PG (26-34); Mean Corpuscular Volume 72.9 fL (80-100); Monocytes Absolute Auto 800 /uL (0-900); Monocytes Percent Auto 7.4 % (3-14); Neutrophils Absolute Auto 8500 /uL (1500-7000); Neutrophils Percent Auto 74.9 % (50-75); Platelet Count 268 X10^3/uL (150-400); Red Blood Cell Count 4.04 X10^6/uL (4.0-5.2); Red Cell Distribution Width 16.2 % (11.6-14.8); White Blood Cell Count 11.3 X10^3/uL (4.5-11.0)
[2021-10-29 12:27] LABS: Alanine Aminotransferase 10 IU/L (<35); Albumin 3.2 g/dL (3.5-5.0); Alkaline Phosphatase 154 U/L (38-126); Aspartate Aminotransferase 19 IU/L (14-36); BUN Creatinine Ratio 12.5 (6-22); Bilirubin Total 0.2 mg/dL (0.2-1.3); Blood Urea Nitrogen 7 mg/dL (7-17); Calcium 8.7 mg/dL (8.4-10.2); Carbon Dioxide 21 mmol/L (22-32); Chloride 108 mmol/L (98-107); Estimated Glomerular Filt Rate > 60 mL/min (>60); Globulin 3.2 g/dL (1.7-4.1); Glucose 90 mg/dL (70-100); HEMOLYSIS < 15 (0-50); Potassium 4.1 mmol/L (3.4-5.1); Sodium 133 mmol/L (137-145); Total Protein 6.4 g/dL (6.3-8.2); Uric Acid 3.6 mg/dL (2.5-6.2)
--- NOTE | 2021-10-29 12:55 | P.TNLD_ITS ---
Visit Information Visit Information Date of evaluation: 10/29/21 Primary OB Provider: Tomás Metz Reason for Evaluation: Yes non-stress test Comments/Additional reasons for admission: 21 yo CRIS 10/30/2021 presenting at 39+6 weeks EGA for NST, BP monitoring, and PIH/PEC labs due to BP elevation at her SONU visit earlier today. Vital Signs Vital Signs: Systoloic max: 142 mmHg x 1 Diastolic max: 82 mmHg x 1 PFSH Social History marital status: unmarried,single (living seperately for now, plans to move in) household members: none lives independently: Yes caregiver/support person: Yes housing: other ([employer]) pets and animals: No education level: other ([employer]) occupational status: employed current occupational exposures/hazards: No travel history: over 6 months ago ([place] for 2 months) seatbelt use: always water heater temp set < 120 deg: Yes (will check) working smoke detector in home: Yes fire extinguisher in home: Yes carbon monox detector in home: Yes firearms in home: No do you feel safe at home: Yes Smoking Status: Never smoker alcohol intake: former substance use type: does not use well-balanced diet: daily or most days daily servings fruits/ve-1 caffeine: No eating out: 1-3 times/week Type(s) of exercise: walking Exam HENMT Head: normal to inspection, normocephalic and atraumatic Eyes General: appearance normal, both eyes and all related structures Resp Effort & Inspection: normal respiratory effort and able to speak in complete sentences Cardio Heart Sounds: no murmurs GI Inspection: normal to inspection Palpation: soft and no hepatosplenomegaly Uterus Location (Fundal Height): 36 Estimated Weight (lbs): 7 Extrem Right lower extremity: normal to inspection Objective Labs Result Diagrams: 10/29/21 11:55 10/29/21 11:55 Labs: Laboratory Results - last 24 hr 10/29/21 10/29/21 10/29/21 10:08 11:55 11:55 WBC 11.3 H RBC 4.04 Hgb 9.4 L Hct 29.5 L MCV 72.9 L MCH 23.4 L MCHC 32.1 RDW 16.2 H Plt Count 268 Neut % (Auto) 74.9 Lymph % (Auto) 14.2 L [place] % (Auto) 7.4 Eos % (Auto) 3.1 Baso % (Auto) 0.4 Neut # (Auto) 8500 H Lymph # (Auto) 1600 [place] # (Auto) 800 Eos # (Auto) 400 Baso # (Auto) 0 Sodium 133 L Potassium 4.1 Chloride 108 H Carbon Dioxide 21 L BUN 7 Creatinine 0.56 Estimated GFR > 60 BUN/Creatinine Ratio 12.5 Glucose 90 Uric Acid 3.6 Calcium 8.7 Total Bilirubin 0.2 AST 19 ALT 10 Alkaline Phosphatase 154 H Total Protein 6.4 Albumin 3.2 L Globulin 3.2 Albumin/Globulin Ratio 1.0 U Random Total Protein 11 Urine Creatinine 75.0 Protein/Creatinin Ratio 0.14 Evaluation Evaluation Baseline heart rate: 13 Variability: Moderate (11-25) monitor accelerations: Present Monitor Decelerations: Absent Uterine Contraction Intensity: Mild Category of Tracing: Reactive Status: Category l Cervical dilation (cm): 1 Cervical effacement (%): 90 station: -1 Diagnosis, Plan/Disposition Final Diagnosis (1) : Status: Acute (2) Elevated BP without diagnosis of hypertension: Status: Acute Plan/Disposition Plan: Ripening starting 1999 this evening and induction AM 10/30/2021. Precautionary symptoms reviewed. OB Disposition: home
--- NOTE | 2021-10-29 13:26 | P.HPOB_ITS ---
OB HPI Date/Time Date of admission: 10/29/21 Date Patient Seen: 10/29/21 Time Patient Seen: 12:30 History of Present Condition Chief complaint: : 1 Para: 0 Estimated Date of Delivery: 10/30/21 Estimated Gestational Age (weeks): 39+6 Narrative: Derian Chirinos is a 21 year old female [facility] Social History marital status: unmarried,single (living seperately for now, plans to move in) household members: none lives independently: Yes caregiver/support person: Yes housing: other ([employer] and some sugars) pets and animals: No education level: other ([employer] occupational status: employed current occupational exposures/hazards: No travel history: over 6 months ago ([place] for 2 months) seatbelt use: always water heater temp set < 120 deg: Yes (will check) working smoke detector in home: Yes fire extinguisher in home: Yes carbon monox detector in home: Yes firearms in home: No do you feel safe at home: Yes Smoking Status: Former smoker alcohol intake: former substance use type: does not use well-balanced diet: daily or most days daily servings fruits/ve-1 caffeine: No eating out: 1-3 times/week Type(s) of exercise: walking Meds Home Medications and Allergies Home Medications Medication Instructions Recorded Confirmed Type doxylamine succinate 25 mg tablet 50 mg PO BEDTIME PRN 03/23/21 10/22/21 History prenat.vits,ulices,[id number] 1 tab PO DAILY 03/23/21 10/22/21 History pyridoxine (vitamin B6) 50 mg 50 mg PO DAILY 03/23/21 10/22/21 History tablet ondansetron 4 mg disintegrating 4 mg PO Q6H PRN nausea and 07/24/21 10/22/21 Rx tablet vomiting #20 tabs Allergies Allergy/AdvReac Type Severity Reaction Status Date / Time No Known Drug Allergies Allergy Verified 10/22/21 10:35 Objective Labs Result Diagrams: 10/29/21 11:55 10/29/21 11:55 Labs: Laboratory Results - last 24 hr 10/29/21 10/29/21 10/29/21 10:08 11:55 11:55 WBC 11.3 H RBC 4.04 Hgb 9.4 L Hct 29.5 L MCV 72.9 L MCH 23.4 L MCHC 32.1 RDW 16.2 H Plt Count 268 Neut % (Auto) 74.9 Lymph % (Auto) 14.2 L [place] % (Auto) 7.4 Eos % (Auto) 3.1 Baso % (Auto) 0.4 Neut # (Auto) 8500 H Lymph # (Auto) 1600 [place] # (Auto) 800 Eos # (Auto) 400 Baso # (Auto) 0 Sodium 133 L Potassium 4.1 Chloride 108 H Carbon Dioxide 21 L BUN 7 Creatinine 0.56 Estimated GFR > 60 BUN/Creatinine Ratio 12.5 Glucose 90 Uric Acid 3.6 Calcium 8.7 Total Bilirubin 0.2 AST 19 ALT 10 Alkaline Phosphatase 154 H Total Protein 6.4 Albumin 3.2 L Globulin 3.2 Albumin/Globulin Ratio 1.0 U Random Total Protein 11 Urine Creatinine 75.0 Protein/Creatinin Ratio 0.14
== END 2021-10-29 13:00 | disposition home or self-care (01) ==
PROVIDERS: Admitting Provider Obstetrics & Gynecology; Referring Provider Obstetrics & Gynecology; Visit Provider Obstetrics & Gynecology
DX: O26.893 Other specified pregnancy related conditions, third trimester (principal); R03.0 Elevated blood-pressure reading, without diagnosis of hypertension; Z3A.39 39 weeks gestation of pregnancy
CPT/HCPCS: 36415; 80053; 82570; 84156; 84550; 85025; G0378; G0379

== ENCOUNTER 2021-10-29 21:51 | Inpatient (IN) | payer OTHER, SELFPAY ==
[2021-10-29] MEDS: miSOPROStoL 25 MCG TABLET 50 MCG PO (22:46)
[2021-10-29 23:02] LABS: COVID19 -Nasal RAPID Negative (Negative)
[2021-10-29] MEDS: ZOLPIDEM 5 MG TABLET PO (23:11)
[2021-10-29 23:35] VITALS: BP 145/71
--- NOTE | 2021-10-30 07:48 | PM.OBHP.1 ---
OB HPI Date/Time Date of admission: 10/29/21 Date Patient Seen: 10/30/21 Time Patient Seen: 08:00 History of Present Condition Chief complaint: : 1 Para: 0 Estimated Date of Delivery: 10/30/21 Estimated Gestational Age (weeks): 40+0 Narrative: Derian Chirinos is a 21 year old CRIS 10/30/2021 admitted for induction due to new onset, mild BP elevation with negative PEC/PIH labs noted 10/29/2021 at the time of her scheduled SONU visit. PNC unremarkable w/ appropriate milestones and solid dating. GBS is negative. Indications Indication for induction OB: gestational HTN/pre-eclampsia History of Present care: good care Dating criteria: LMP confirmed by 1st trimester US Ultrasounds: normal 1st trimester US and normal mid trimester US Obstetrical complications: gestational hypertension (Mild BP elevation w/ normal labs) Preadmission Labs Blood type: A (+) positive -: Antibody screen: negative, GBS status: negative, HBsAG: negative and HIV: negative -: Chlamydia screen: not detected and Gonorrhea screen: not detected -: Rubella: not immune and Varicella: immune HCT: 29.5 HCAB: negative Quad screen: Normal 1 hr GTT: 105 Prior (ies) History: N/A Evaluation Evaluation Baseline heart rate: 125 Variability: Moderate (11-25) monitor accelerations: Present Monitor Decelerations: Absent Contraction Frequency (minutes): 3 Uterine Contraction Intensity: Mild Category of Tracing: Reactive Status: Category l Dilation (cm): 2 Effacement (%): 90 Dilation: 1-2 cm Effacement: >/=80% station: -1 Position of cervix: mid Consistency: soft [place] score: 9 PFSH Social History marital status: unmarried,single (living seperately for now, plans to move in) household members: none lives independently: Yes caregiver/support person: Yes housing: other ([employer]) pets and animals: No education level: other () occupational status: employed current occupational exposures/hazards: No travel history: over 6 months ago ([place] for 2 months) seatbelt use: always water heater temp set < 120 deg: Yes (will check) working smoke detector in home: Yes fire extinguisher in home: Yes carbon monox detector in home: Yes firearms in home: No do you feel safe at home: Yes Smoking Status: Never smoker alcohol intake: former substance use type: does not use well-balanced diet: daily or most days daily servings fruits/ve-1 caffeine: No eating out: 1-3 times/week Type(s) of exercise: walking Meds Home Medications and Allergies Home Medications Medication Instructions Recorded Confirmed Type doxylamine succinate 25 mg tablet 50 mg PO BEDTIME PRN 03/23/21 10/22/21 History prenat.vits,ulices,[id number] 1 tab PO DAILY 03/23/21 10/22/21 History pyridoxine (vitamin B6) 50 mg 50 mg PO DAILY 03/23/21 10/22/21 History tablet ondansetron 4 mg disintegrating 4 mg PO Q6H PRN nausea and 07/24/21 10/22/21 Rx tablet vomiting #20 tabs Allergies Allergy/AdvReac Type Severity Reaction Status Date / Time No Known Drug Allergies Allergy Verified 10/22/21 10:35 Review of Systems Review of Systems Narrative: Problem-specific ROS positives included in HPI OB Exam HENMT Head: normal to inspection, normocephalic and atraumatic Eyes General: appearance normal, both eyes and all related structures Resp Effort & Inspection: normal respiratory effort and able to speak in complete sentences Auscultation: clear to auscultation bilaterally Cardio Rate: regular rate Rhythm: regular rhythm Heart Sounds: S1 normal, S2 normal and no murmurs Extremities Lower extremity: Yes normal to inspection GI Inspection: normal to inspection Palpation: Yes soft and Yes no hepatosplenomegaly Objective Labs Labs: Laboratory Results - last 24 hr 10/29/21 10/29/21 22:20 22:20 SARS-CoV-2 (PCR) Negative Blood Type A Positive Antibody Screen Negative Assessment and Plan Assessment and Plan Assessment and Plan narrative: ASSESSMENT 1. IUP, conde, 40+0 weeks EGA 2. Mild BP elevation w/o signs/sx of PEC 3. Anemia 4. Negative GBS status PLAN 1. Admit for ripening/induction 2. See orders Time Spent with Patient Total time spent with greater than 50% in coordination of care (as documented) at patient's floor/unit and/or counseling patient:: 15-24 minutes
[2021-10-30 08:43] LABS: Add Manual Diff / Slide Review NO; Basophils Absolute Auto 0 /uL (0-100); Basophils Percent Auto 0.4 % (0-2); Eosinophils Absolute Auto 300 /uL (0-450); Eosinophils Percent Auto 2.9 % (2-4); Hematocrit 31.3 % (36-46); Lymphocytes Absolute Auto 1900 /uL (1100-4500); Mean Corpuscular HGB Conc 31.9 % (30-36); Mean Corpuscular Hemoglobin 23.1 PG (26-34); Mean Corpuscular Volume 72.4 fL (80-100); Monocytes Absolute Auto 700 /uL (0-900); Monocytes Percent Auto 5.9 % (3-14); Neutrophils Absolute Auto 8300 /uL (1500-7000); Neutrophils Percent Auto 73.8 % (50-75); Platelet Count 290 X10^3/uL (150-400); Red Blood Cell Count 4.32 X10^6/uL (4.0-5.2); Red Cell Distribution Width 16.2 % (11.6-14.8); White Blood Cell Count 11.2 X10^3/uL (4.5-11.0)
[2021-10-30 09:02] LABS: Aspartate Aminotransferase 19 IU/L (14-36); BUN Creatinine Ratio 17.8 (6-22); Blood Urea Nitrogen 8 mg/dL (7-17); Estimated Glomerular Filt Rate > 60 mL/min (>60); Uric Acid 3.2 mg/dL (2.5-6.2)
[2021-10-30] MEDS: LACTATED RINGERS 1,000 ML 100 ML IV (09:05)
[2021-10-30] MEDS: OXYTOCIN PREMIX 30 UNIT/500 ML PLAST..BAG IV (09:13)
--- NOTE | 2021-10-30 13:36 | PM.OBPNLAB ---
Date/Time Date Patient Seen: 10/30/21 Time Patient Seen: 13:38 Pain Control Pain control: tolerating well Pelvic Exam Dilation (cm): 2 Effacement (%): 90 station: -1 Amniotic membrane status: Intact Contractions Contractions on admission: none Monitor mode: External Pitocin rate (mU/min): 4 Contraction frequency (min): 4 Contraction duration (min): 1 Contraction pattern: Irregular Contraction phase: Resting Contraction intensity: Moderate Status status: Category l Heart Rate Baseline: 125 Monitor Accelerations: Present Monitor Decelerations: Absent Monitor Variability: Moderate Assessment and Plan Assessment: induction ongoing Plan: continuous present management
--- NOTE | 2021-10-30 18:59 | PM.OBPNLAB ---
Date/Time Date Patient Seen: 10/30/21 Time Patient Seen: 19:00 Pain Control Pain control: epidural Pelvic Exam Dilation (cm): 2 Effacement (%): 90 station: -1 Amniotic membrane status: Intact Contractions Monitor mode: External Pitocin rate (mU/min): 4 Contraction frequency (min): 4 Contraction duration (min): 1 Contraction pattern: Irregular Contraction phase: Resting Contraction intensity: Moderate Status status: Category l Heart Rate Baseline: 125 Monitor Accelerations: Present Monitor Decelerations: Absent Monitor Variability: Moderate Assessment and Plan Assessment: induction ongoing Comments: MARCO ANTONIO placed with earlier 5 cm exam by RN. Options presented to the patient and will continue augmantation overnight as staffing permits. Myron available for sleep.
[2021-10-30] MEDS: CALCIUM CARBONATE 500 MG TAB 1000 MG PO (20:59)
[2021-10-31] MEDS: FENT 2MCG/ML BUPIV 0.125% EPI 200 MCG/100 ML PLAST..BAG 12 MCG EPIDURAL ×2 (00:13→07:07)
[2021-10-31] MEDS: LACTATED RINGERS 1,000 ML 100 ML IV ×2 (08:12→18:14)
--- NOTE | 2021-10-31 10:50 | PM.OBPNLAB ---
Date/Time Date Patient Seen: 10/31/21 Time Patient Seen: 10:50 Pain Control Pain control: tolerating well and epidural Pelvic Exam Dilation (cm): 3 Effacement (%): 90 station: -1 Amniotic membrane status: Ruptured Comments: AROM, clear fluid, 1045 Contractions Contractions on admission: none Monitor mode: External Pitocin rate (mU/min): 12 Contraction frequency (min): 4 Contraction duration (min): 1 Contraction pattern: Irregular Contraction phase: Resting Contraction intensity: Moderate Status status: Category l Heart Rate Baseline: 125 Monitor Accelerations: Present Monitor Decelerations: Absent Monitor Variability: Moderate Assessment and Plan Assessment: induction ongoing Plan: continuous present management and begin patient augmentation Comments: Continue augmentation w/ close observation for progress in descent and dilation.
[2021-10-31] MEDS: ONDANSETRON 4 MG/2 ML INJ IV (11:12)
[2021-10-31] MEDS: FENT 2MCG/ML BUPIV 0.125% EPI 200 MCG/100 ML PLAST..BAG 15 MCG EPIDURAL ×3 (12:44→23:09)
--- NOTE | 2021-10-31 18:22 | PM.OBPNLAB ---
Date/Time Date Patient Seen: 10/31/21 Time Patient Seen: 18:22 Pain Control Pain control: tolerating well and epidural Pelvic Exam Dilation (cm): 9 Effacement (%): 90 station: 0 Amniotic membrane status: Ruptured Contractions Monitor mode: External Pitocin rate (mU/min): 0 Contraction frequency (min): 4 Contraction pattern: Irregular Contraction phase: Resting Contraction intensity: Moderate Status status: Category l Heart Rate Baseline: 120 Monitor Accelerations: Periodic Monitor Decelerations: Early Monitor Variability: Moderate Assessment and Plan Assessment: active labor Plan: continuous present management Comments: Resume augmentation as necessary.
--- NOTE | 2021-10-31 23:42 | PM.OBPNLAB ---
Date/Time Date Patient Seen: 10/31/21 Time Patient Seen: 23:42 Pain Control Pain control: tolerating well and epidural Pelvic Exam Dilation (cm): 10 Effacement (%): 100 station: +1 Amniotic membrane status: Ruptured Contractions Monitor mode: External Pitocin rate (mU/min): 0 Contraction frequency (min): 4 Contraction duration (min): 1 Contraction pattern: Irregular Contraction phase: Resting Contraction intensity: Moderate Status status: Category l Heart Rate Baseline: 120 Monitor Accelerations: Present Monitor Decelerations: Early Monitor Variability: Moderate Assessment and Plan Assessment: active labor Plan: continuous present management Comments: Initiate pushing; augment contractions as needed. Anticipate once pushing becomes effective.
--- NOTE | 2021-11-01 01:27 | PM.OBPRVD ---
Events: Induced HTN Labor & Delivery Delivery date: 11/01/21 Intrapartal Events: None Cervical ripening method: per misoprostal protocol Delivery augmentation: rupture of membranes Delivery monitor: external FHT and external uterine Route of delivery: Episiotomy description: None L&D Laceration Description: Perineal - 1st Degree Delivery repair: chromic Estimated blood loss (mL): 150 Anesthesia Type: Epidural Complications: None Narrative: Following a brief 2nd stage characterized by effective pushing, the patient delivered spontaneously over an intact perineum a viable female infant with Apgars of 9/9, and a BW of 3508gms ( 7lb. 11.7oz.) from the ARMIN position. No shoulder or body dystocia was encountered. There was no cord entanglement noted. The infant was vigorous at and skin to skin contact was initiated immediately. Delayed cord clamping performed with cessation of umbilical cord pulsation. The cord was then doubly clamped and cut and a cord blood sample was obtained for routine studies. The placenta was then delivered spontaneously with gentle cord traction and suprapubic counter pressure. IV Pitocin initiated upon delivery of the placenta. Inspection of the perineum showed a superficial first-degree perineal laceration was repaired with 2-0 chromic running interlocking stitches. Hemostasis at the end of the delivery process was excellent with a total blood loss of approximately 150 cc. Sponge instrument, and needle counts were correct at the end of delivery. Mother and tolerated the delivery process well and there were no complications experienced. Baby 1: gender: Female Presentation: vertex Position: Left Occiput Anterior Placenta delivery description: Spontaneous and Expressed Cord Vessel Description: 3 Vessels Plan for aftercare: Routine care
[2021-11-01] MEDS: ACETAMINOPHEN 325 MG TABLET 650 MG PO ×3 (02:21→16:58)
[2021-11-01] MEDS: DERMOPLAST SPRAY 20% 60 ML 1 SPRAY TOP (02:21)
[2021-11-01] MEDS: IBUPROFEN 600 MG TABLET PO ×3 (02:22→16:58)
[2021-11-01 06:58] LABS: Add Manual Diff / Slide Review NO; Basophils Absolute Auto 200 /uL (0-100); Basophils Percent Auto 0.8 % (0-2); Eosinophils Absolute Auto 200 /uL (0-450); Eosinophils Percent Auto 0.9 % (2-4); Hematocrit 27.3 % (36-46); Hemoglobin 8.8 g/dL (12.0-16.0); Lymphocytes Absolute Auto 1500 /uL (1100-4500); Lymphocytes Percent Auto 7.4 % (25-40); Mean Corpuscular HGB Conc 32.3 % (30-36); Mean Corpuscular Volume 71.2 fL (80-100); Monocytes Absolute Auto 1100 /uL (0-900); Monocytes Percent Auto 5.5 % (3-14); Neutrophils Absolute Auto 16800 /uL (1500-7000); Neutrophils Percent Auto 85.4 % (50-75); Platelet Count 245 X10^3/uL (150-400); Red Blood Cell Count 3.83 X10^6/uL (4.0-5.2); Red Cell Distribution Width 15.9 % (11.6-14.8); White Blood Cell Count 19.7 X10^3/uL (4.5-11.0)
[2021-11-01 07:12] LABS: Alanine Aminotransferase 13 IU/L (<35); Albumin 2.6 g/dL (3.5-5.0); Albumin Globulin Ratio 0.9 (1.0-2.8); Alkaline Phosphatase 129 U/L (38-126); Aspartate Aminotransferase 30 IU/L (14-36); BUN Creatinine Ratio 12.1 (6-22); Bilirubin Total 0.7 mg/dL (0.2-1.3); Blood Urea Nitrogen 11 mg/dL (7-17); Calcium 8.2 mg/dL (8.4-10.2); Carbon Dioxide 23 mmol/L (22-32); Chloride 106 mmol/L (98-107); Estimated Glomerular Filt Rate > 60 mL/min (>60); Globulin 2.8 g/dL (1.7-4.1); Glucose 79 mg/dL (70-100); HEMOLYSIS < 15 (0-50); Potassium 3.7 mmol/L (3.4-5.1); Sodium 133 mmol/L (137-145); Total Protein 5.4 g/dL (6.3-8.2)
[2021-11-01] MEDS: DOCUSATE 100 MG CAPSULE PO (09:10)
--- NOTE | 2021-11-01 18:29 | P.DS_ITS ---
Discharge Providers Provider Date of admission: 10/29/21 21:51 Discharge Date: 11/01/21 Primary care physician: Doctor Jim MD Consults: 11/02/21 01:23 Consult to Dry Mop Maker Routine Comment: Discharge provider: Tomás Metz MD Summary Hospital Course Date Patient Seen: 11/01/21 Time Patient Seen: 18:29 Diagnoses: Intrauterine gestation, Reid, 40+ 1 week's gestational age, delivered Gestational hypertension without severe features Hospital Course: Derian was admitted on the evening of 10/29/2021 with mildly elevated blood pressures at term and underwent Cytotec ripening. Pitocin was initiated on the morning of 10/30/2021 and the patient progressed slowly through labor with the epidural catheter for pain relief and delivered spontaneously very early on the morning of 11/01/2021. A detailed description of the delivery is included on my delivery note that date. Following delivery the patient has had prompt return bowel and bladder function, she is ambulating independently, tolerating regular diet, and her pain is well controlled with oral pain medication. Her blood pressures have all remained normal following delivery without benefit of antihypertensives. She will be discharged at this time in an afebrile normotensive condition to home with medications to include ibuprofen 600 mg p.o. q.6 hours as needed pain. Prior to discharge she was counseled regarding precautionary symptoms, limitations activity, medications, and plans for follow- up which will be in 6 weeks. They have not made any decisions regarding contraception. Peripartum Data Delivery Method: Natural Vaginal Laceration Description: Perineal - 1st Degree Episiotomy description: None complications: none [place] 1: Gender: Female Disposition of : home Status at Discharge Cognitive/behavioral status at discharge: oriented Functional status at discharge: independent ambulation Overall status at discharge: patient is progressing back to baseline Time Spent with Patient Time attestation: Total time spent providing and/or coordinating discharge services: Time spent: Less than 30 minutes Objective Labs Result Diagrams: 11/01/21 06:46 11/01/21 06:46 Labs: Laboratory Results - last 24 hr 11/01/21 11/01/21 06:46 06:46 WBC 19.7 H D RBC 3.83 L Hgb 8.8 L Hct 27.3 L MCV 71.2 L MCH 23.0 L MCHC 32.3 RDW 15.9 H Plt Count 245 Neut % (Auto) 85.4 H Lymph % (Auto) 7.4 L [place] % (Auto) 5.5 Eos % (Auto) 0.9 L Baso % (Auto) 0.8 Neut # (Auto) 63067 H Lymph # (Auto) 1500 [place] # (Auto) 1100 H Eos # (Auto) 200 Baso # (Auto) 200 H Sodium 133 L Potassium 3.7 Chloride 106 Carbon Dioxide 23 BUN 11 Creatinine 0.91 Estimated GFR > 60 BUN/Creatinine Ratio 12.1 Glucose 79 Calcium 8.2 L Total Bilirubin 0.7 AST 30 ALT 13 Alkaline Phosphatase 129 H Total Protein 5.4 L Albumin 2.6 L Globulin 2.8 Albumin/Globulin Ratio 0.9 L Exam Const General: cooperative and comfortable Nutritional Appearance: average body habitus Orientation: alert and oriented x3 HENMT Head: normal to inspection, atraumatic and abrasion Ears: hearing grossly normal bilaterally Face and sinus: face symmetric Eyes General: appearance normal, both eyes and all related structures Conjunctivae: conjunctivae normal Sclera: sclerae normal EOM: EOM intact bilaterally Neck Neck: normal visual inspection Resp Effort & Inspection: normal respiratory effort and able to speak in complete sentences Auscultation: clear to auscultation bilaterally Cardio Rate: regular rate Rhythm: regular rhythm Heart Sounds: S1 normal, S2 normal and no murmurs GI Inspection: normal to inspection Palpation: soft and no hepatosplenomegaly External Female Exam: other (Intact w/ minimal swelling.) Extrem General: no calf tenderness Psych Appearance: grossly normal Mental Status: mental status grossly normal Speech and Movement: speech and movement normal Mood: congruent mood Affect: normal affect Attitude: cooperative Thought Process: normal Thought Content: normal Judgment: judgment good Discharge Plan Discharge Plan Patient Disposition: Home Provider Discharge Comment: Please review the discharge instructions you received at the time of your discharge. Your follow-up appointment will be scheduled for 6 weeks from now and I look forward to seeing you then. If however in the meanwhile you have any issues, concerns, or problems, please contact me either through the office phone at [phone] or via the patient portal. Discharge orders & Medications Prescriptions: New ibuprofen 600 mg Tablet 600 mg PO Q6HR PRN (Reason: Pain, Mild (1-3)) Qty: 60 2RF Continued prenat.vits,ulices,[id number]-[id number] Tablet 1 tab PO DAILY doxylamine succinate 25 mg tablet 50 mg PO BEDTIME PRN (Reason: Allergy Symptoms) pyridoxine (vitamin B6) 50 mg tablet 50 mg PO DAILY ondansetron 4 mg tablet,disintegrating 4 mg PO Q6H PRN (Reason: nausea and vomiting) Qty: 20 4RF Follow up/Referrals: Dorothyaneous,DoctorMD [Primary Care Provider] - Discharge Health Status Multidrug resistant organism: No MDRO Diet/Activity/Treatments Diet: Diet as Tolerated Activity: As tolerated Skin/Wound/Dressing Care Report to your healthcare provider any signs of infection, such as:: chills, fever, increased pain, unusual drainage and unusual redness Dressing: N/A Visit Report/Discharge Packet Instructions: DI for Labor and Delivery, Vaginal , DI for and Nipple Soreness Discharge Data Primary Care Provider: Doctor Jim
[2021-11-01 19:42] VITALS: BP 122/59; PULSE 86; RESP 15; TEMP 36.6
[2021-11-01 20:17] VITALS: BP 122/59; PULSE 86; RESP 15; TEMP 36.6
== END 2021-11-01 21:38 | disposition home or self-care (01) | DRG 807 ==
PROVIDERS: Admitting Provider Obstetrics & Gynecology; Referring Provider Obstetrics & Gynecology; Visit Provider Obstetrics & Gynecology
DX: O13.4 Gestational [pregnancy-induced] hypertension without significant proteinuria, complicating childbirth (principal); Z37.0 Single live birth; O48.0 Post-term pregnancy; Z3A.40 40 weeks gestation of pregnancy; O70.0 First degree perineal laceration during delivery; O99.02 Anemia complicating childbirth; D64.9 Anemia, unspecified; Z20.822 Contact with and (suspected) exposure to COVID-19; O26.893 Other specified pregnancy related conditions, third trimester; R03.0 Elevated blood-pressure reading, without diagnosis of hypertension; Z3A.39 39 weeks gestation of pregnancy
CPT/HCPCS: 01967; 36415; 59025; 59050; 59200; 59400; 80053; 82570; 84156; 84450; 84550; 85025; 86850; 86900; 86901; 87635; C9803; G0378; G0379; J2405; J2590

== ENCOUNTER → 2022-07-19 11:22 | Outpatient (CLI) | payer OTHER, SELFPAY ==
[2022-07-19 12:50] LABS: HCG Quantitative /Beta subunit 272.3 mIU/mL
== END ==
PROVIDERS: Referring Provider Obstetrics & Gynecology; Visit Provider Obstetrics & Gynecology
DX: Z34.90 Encounter for supervision of normal pregnancy, unspecified, unspecified trimester (principal)
CPT/HCPCS: 36415; 84702

== ENCOUNTER → 2022-07-26 14:57 | Outpatient (CLI) | payer OTHER, SELFPAY ==
--- NOTE | 2022-07-26 14:58 | DI.US.S_ITS ---
PROCEDURE: US OB <= 14 WEEKS FETUS INDICATIONS: Dating OB US OUTSIDE/PRIOR DATING DATA: Last menstrual period (LMP): 05/30/2022. LMP-based estimated date of delivery (CRIS): 03/06/2023. TECHNIQUE: Real-time scanning was performed of the fetus and maternal pelvic organs, with image documentation. Endovaginal scanning was also performed to better visualize the fetus and maternal ovaries. COMPARISON: None from this . FINDINGS: Small gestational sac versus fluid/pseudo gestational sac present within the uterine cavity. No yolk sac or embryo visualized. If this represents a gestational sac mean sac diameter is 0.3 centimeters corresponding to 5 weeks 0 days Maternal organs: Ovaries are unremarkable. IMPRESSION: of unknown location. Small intrauterine fluid collection present which could represent a gestational sac, cyst, or focal fluid. If this is a gestational sac, size would correspond to a gestational age of 5 weeks 0 days. Recommend close clinical follow-up and correlation with serial beta hCG, and follow-up ultrasound if indicated. We strive to produce accurate, complete, and clear reports of imaging services. To assist us in improving patient care, this report was composed using standard report templates and voice recognition software. Therefore, it may contain abnormal punctuation, insertions and/or omissions. Occasional wrong-word or sound-alike substitutions may occur. Though we review the report and make efforts to correct it, we do recommend that the report be read carefully in proper context to recognize any text inaccuracies. Dictated by: Kevin Martinez M.D. on 07/26/2022 at 18:00 Approved by: Kevin Martinez M.D. on 07/26/2022 at 18:04
== END ==
PROVIDERS: Referring Provider Obstetrics & Gynecology; Visit Provider Obstetrics & Gynecology
DX: Z36.87 Encounter for antenatal screening for uncertain dates (principal)
CPT/HCPCS: 76801

== ENCOUNTER → 2022-07-27 11:11 | Outpatient (CLI) | payer OTHER, SELFPAY | PROVIDERS: Referring Provider Obstetrics & Gynecology; Visit Provider Obstetrics & Gynecology | DX: Z34.90 Encounter for supervision of normal pregnancy, unspecified, unspecified trimester (principal) | CPT/HCPCS: 36415; 84702 ==

== ENCOUNTER → 2022-07-29 08:52 | Outpatient (CLI) | payer OTHER, SELFPAY ==
[2022-07-29 10:04] LABS: Appearance Urine UA CLEAR; Bilirubin Urine UA NEGATIVE (NEGATIVE); Color Urine UA YELLOW; Glucose Urine UA NEGATIVE (Negative); Ketones Urine UA NEGATIVE (NEGATIVE); Leukocyte Esterase Urine UA NEGATIVE (NEGATIVE); Nitrite Urine UA NEGATIVE (Negative); Occult Blood Urine UA 2+ (Negative); Protein Urine UA NEGATIVE (Negative); Specific Gravity Urine UA 1.025 (1.000-1.035); Urobilinogen Urine UA 0.2 E.U./dL (0.2)
[2022-07-29 10:15] LABS: Bacteria Urine None Seen; Culture Indicated Urine Cult Not Indicated; RBC Urine 5-10/HPF (0-5/HPF); Squamous Epithelial Cell Urine 1-5 /HPF (0-5/HPF); WBC Urine None Seen (0-5/HPF)
[2022-07-29 10:44] LABS: HCG Quantitative /Beta subunit 415.3 mIU/mL
== END ==
PROVIDERS: Obstetrics & Gynecology; Referring Provider Obstetrics & Gynecology; Visit Provider Obstetrics & Gynecology
DX: O20.9 Hemorrhage in early pregnancy, unspecified (principal); R30.0 Dysuria
CPT/HCPCS: 36415; 81001; 84702

== ENCOUNTER 2022-08-03 11:59 | Emergency (ER) | payer OTHER, SELFPAY ==
[2022-08-03 12:11] VITALS: BP 129/79; PULSE 87; RESP 18; TEMP 36.3; O2SAT 97; BMI 32.1
[2022-08-03 12:18] VITALS: BP 140/78; PULSE 78; O2SAT 99
--- NOTE | 2022-08-03 12:22 | DI.US.S_ITS ---
PROCEDURE: US OB <= 14 WEEKS FETUS INDICATIONS: vaginal bleeding, early OUTSIDE/PRIOR DATING DATA: Last menstrual period (LMP): May 30, 2022 LMP-based estimated date of delivery (CRIS): March 06, 2023 First dating scan (date and location): Not applicable Estimated date of delivery (CRIS) from first dating scan: Not applicable TECHNIQUE: Real-time scanning was performed of the fetus and maternal pelvic organs, with image documentation. Endovaginal scanning was also performed to better visualize the fetus and maternal ovaries. COMPARISON: None. FINDINGS: Embryo: Small anechoic focus noted in the endometrial cavity which may represent a gestational sac. Mean diameter of the possible gestational sac is 0.3 centimeters which would correspond to ultrasound estimated gestational age of 5 weeks 0 days. No yolk sac or pole identified to confirm intrauterine . Heart rate: heart motion identified. Maternal organs: Ovaries are sonographically normal. IMPRESSION: No definite intrauterine identified. Anechoic focus in the endometrial cavity may represent a gestational sac of early , however finding is nonspecific and may also represent nonviable or occult ectopic . Recommend close clinical observation, correlation with serial beta HCG and short-term follow-up ultrasound. strive to produce accurate, complete, and clear reports of imaging services. To assist us in improving patient care, this report was composed using standard report templates and voice recognition software. Therefore, it may contain abnormal punctuation, insertions and/or omissions. Occasional wrong-word or sound-alike substitutions may occur. Though we review the report and make efforts to correct it, we do recommend that the report be read carefully in proper context to recognize any text inaccuracies. Dictated by: Ruba Penaloza MD, PhD on 08/03/2022 at 13:09 Approved by: Ruba Penaloza MD, PhD on 08/03/2022 at 13:13
[2022-08-03 12:30] VITALS: BP 125/75; PULSE 75; O2SAT 98
[2022-08-03 12:55] LABS: Add Manual Diff / Slide Review NO; Basophils Absolute Auto 0 /uL (0-100); Basophils Percent Auto 0.5 % (0-2); Eosinophils Absolute Auto 100 /uL (0-450); Eosinophils Percent Auto 0.9 % (2-4); Hematocrit 39.1 % (36-46); Hemoglobin 13.1 g/dL (12.0-16.0); Lymphocytes Absolute Auto 1700 /uL (1100-4500); Lymphocytes Percent Auto 22.4 % (25-40); Mean Corpuscular HGB Conc 33.6 % (30-36); Mean Corpuscular Volume 83.5 fL (80-100); Monocytes Absolute Auto 500 /uL (0-900); Monocytes Percent Auto 6.4 % (3-14); Neutrophils Absolute Auto 5200 /uL (1500-7000); Neutrophils Percent Auto 69.8 % (50-75); Platelet Count 276 X10^3/uL (150-400); Red Blood Cell Count 4.68 X10^6/uL (4.0-5.2); Red Cell Distribution Width 13.7 % (11.6-14.8); White Blood Cell Count 7.5 X10^3/uL (4.5-11.0)
[2022-08-03 13:00] VITALS: BP 111/71; PULSE 79; O2SAT 99
[2022-08-03 13:06] LABS: Alanine Aminotransferase 14 IU/L (<35); Albumin 4.5 g/dL (3.5-5.0); Albumin Globulin Ratio 1.3 (1.0-2.8); Alkaline Phosphatase 103 U/L (38-126); Aspartate Aminotransferase 19 IU/L (14-36); Bilirubin Total 0.4 mg/dL (0.2-1.3); Blood Urea Nitrogen 9 mg/dL (7-17); Calcium 8.7 mg/dL (8.4-10.2); Carbon Dioxide 25 mmol/L (22-32); Chloride 106 mmol/L (98-107); Estimated Glomerular Filt Rate > 60 mL/min (>60); Globulin 3.4 g/dL (1.7-4.1); Glucose 95 mg/dL (70-100); HEMOLYSIS < 15 (0-50); Potassium 4.2 mmol/L (3.4-5.1); Sodium 138 mmol/L (137-145); Total Protein 7.9 g/dL (6.3-8.2)
[2022-08-03 13:22] LABS: HCG Quantitative /Beta subunit 6.5 mIU/mL
[2022-08-03 13:30] VITALS: BP 111/76; PULSE 72; O2SAT 99
--- NOTE | 2022-08-03 13:47 | ED_ITS ---
HPI - <Brendan Hernandez PA-C - Last Filed: 08/03/22 17:59> General Chief complaint: OB/Uterine Contractions Stated complaint: Pain in vaginal area, going through miscarriage Time Seen by Provider: 08/03/22 12:43 Source: patient Mode of arrival: Family Vehicle Limitations: no limitations History of Present Illness HPI Narrative: 22-year-old female presents to the ED with 5 days of vaginal bleeding. Patient was seen by her OBGYN Dr. Metz on 07/29/22 for the same complaint, her quantitative hCG was 415. Patient states she passed a clot on . Patient complains of pelvic cramping, but reduced bleeding now. Patient also complains of vaginal lesions that started 5 days ago that are painful and itchy. Patient denies fever, chills, chest pain, shortness of breath, nausea, vomiting, dysuria, lightheadedness, dizziness, syncope. Related Data Home Medications Medication Instructions Recorded Confirmed doxylamine succinate 25 mg tablet 50 mg PO BEDTIME PRN Allergy 03/23/21 07/29/22 Symptoms prenat.vits,ulices,xpr-[id number] 1 tab PO DAILY 03/23/21 07/29/22 pyridoxine (vitamin B6) 50 mg 50 mg PO DAILY 03/23/21 07/29/22 tablet Previous Rx's Medication Instructions Recorded ondansetron 4 mg disintegrating 4 mg PO Q6H PRN nausea and 07/24/21 tablet vomiting #20 tabs ibuprofen 600 mg tablet 600 mg PO Q6HR PRN Pain, Mild 11/01/21 (1-3) #60 tabs metronidazole 500 mg tablet 500 mg PO BID 7 days #14 tabs 08/03/22 Allergies Allergy/AdvReac Type Severity Reaction Status Date / Time No Known Drug Allergies Allergy Verified 08/03/22 12:10 Review of Systems <Brendan Hernandez PA-C - Last Filed: 08/03/22 17:59> Review of Systems ROS Unobtainable: All systems reviewed & are unremarkable except as noted in HPI and below Constitutional Constitutional: Denies chills, Denies fatigue, Denies fever(s), Denies frequent falls, Denies lethargy and Denies weakness Eyes Eyes: Denies change in vision, Denies eye discharge, Denies irritation and Denies loss of vision ENT Ears, Nose, Mouth, and Throat: Denies change in voice, Denies dizziness, Denies neck pain, Denies sore throat and Denies throat swelling Cardiovascular Cardiovascular: Denies chest pain, Denies irregular heart rhythm, Denies lightheadedness, Denies palpitations, Denies dyspnea, Denies dyspnea on exertion and Denies orthopnea Respiratory Respiratory: Denies cough, Denies dyspnea, Denies dyspnea on exertion and Denies wheezing Gastrointestinal Gastrointestinal: Denies abdominal pain, Denies change in bowel habits, Denies diarrhea, Denies nausea and Denies vomiting Genitourinary Genitourinary: Reports abnormal vaginal bleeding, Denies hematuria, Reports genital lesions, Denies flank pain, Denies urinary incontinence, Denies urinary urgency, Reports vaginal discharge, Reports vaginal odor and Reports vaginal pruritus Musculoskeletal Musculoskeletal: Denies back pain, Denies muscle weakness, Denies neck pain, Denies numbness and Denies tingling Integumentary/Breasts Skin/Breast: Denies pruritus, Denies erythema, Denies rash and Denies wounds Neurologic Neurologic: Denies behavioral changes, Denies confusion, Denies dizziness, Denies frequent falls, Denies loss of vision, Denies numbness, Denies tingling and Denies weakness Psychiatric Psychiatric: Denies anxiety, Denies behavioral changes, Denies confusion, Denies depression, Denies homicidal ideation and Denies suicidal ideation Endocrine Endocrine: Denies fatigue, Denies flushing and Denies palpitations Hematologic/Lymphatic Hematologic/Lymphatic: Denies easy bruising Allergic/Immunologic Allergic/Immunologic: Denies urticaria, Denies throat swelling and Denies wheezing Exam <Brendan Hernandez PA-C - Last Filed: 08/03/22 17:59> Narrative Exam Narrative: Const General:?cooperative, healthy appearing and comfortable [facility] Head:?normal to inspection Ears:?hearing grossly normal bilaterally Nose:?external nose normal Face and sinus:?normal facial exam and sinuses nontender Mouth:?oral mucosae normal Throat:?posterior oropharynx normal Eyes General:?appearance normal, both eyes and all related structures Neck Neck:?normal visual inspection and no lymphadenopathy noted Resp Effort & Inspection:?normal respiratory effort Auscultation:?clear to auscultation bilaterally Cardio Rate:?regular rate Rhythm:?regular rhythm GI Abdomen is soft, nondistended, nontender to palpation. Foul-smelling vaginal discharge on external exam. There were some papular lesions. Neuro General:?patient alert, patient awake and patient oriented x3 Initial Vital Signs Initial Vital Signs: Vital Signs Temperature 97.4 F L 08/03/22 12:11 Pulse Rate 87 08/03/22 12:11 Respiratory Rate 18 08/03/22 12:11 Blood Pressure 129/79 08/03/22 12:11 Pulse Oximetry 97 08/03/22 12:11 Oxygen Delivery Method Room Air 08/03/22 12:11 <Kb Vincent DO - Last Filed: 08/04/22 07:22> Initial Vital Signs Initial Vital Signs: Vital Signs Temperature 97.4 F L 08/03/22 12:11 Pulse Rate 87 08/03/22 12:11 Respiratory Rate 18 08/03/22 12:11 Blood Pressure 129/79 08/03/22 12:11 Pulse Oximetry 97 08/03/22 12:11 Oxygen Delivery Method Room Air 08/03/22 12:11 Course <Brendan Hernandez PA-C - Last Filed: 08/03/22 17:59> Orders Ordered: Discontinued Medications Acetaminophen (Acetaminophen 325 Mg Tablet) 975 mg PO NOW ONE Stop: 08/03/22 16:14 Last Admin: 08/03/22 16:20 Dose: Not Given Documented By: MAGALY Lorazepam (Lorazepam 2 Mg/Ml Inj) 1 mg IV NOW ONE Stop: 08/03/22 16:21 Last Admin: 08/03/22 16:37 Dose: Not Given Documented By: KLS Vital Signs Vital signs: Vital Signs - 8 hr 08/03/22 12:11 08/03/22 12:18 08/03/22 12:18 Temperature 97.4 F L Pulse Rate 87 78 Respiratory Rate 18 Blood Pressure 129/79 140/78 Pulse Oximetry 97 99 Oxygen Delivery Method Room Air 08/03/22 12:30 08/03/22 12:30 08/03/22 13:00 Temperature Pulse Rate 75 Respiratory Rate Blood Pressure 125/75 111/71 Pulse Oximetry 98 Oxygen Delivery Method 08/03/22 13:00 08/03/22 13:30 08/03/22 13:30 Temperature Pulse Rate 79 72 Respiratory Rate Blood Pressure 111/76 Pulse Oximetry 99 99 Oxygen Delivery Method Room Air 08/03/22 17:54 Temperature Pulse Rate 72 Respiratory Rate Blood Pressure 121/75 Pulse Oximetry 96 Oxygen Delivery Method Room Air <Kb Vincent DO - Last Filed: 08/04/22 07:22> Orders Ordered: Discontinued Medications Acetaminophen (Acetaminophen 325 Mg Tablet) 975 mg PO NOW ONE Stop: 08/03/22 16:14 Last Admin: 08/03/22 16:20 Dose: Not Given Documented By: BS Lorazepam (Lorazepam 2 Mg/Ml Inj) 1 mg IV NOW ONE Stop: 08/03/22 16:21 Last Admin: 08/03/22 16:37 Dose: Not Given Documented By: KLS Vital Signs Vital signs: Vital Signs - 8 hr 08/03/22 12:11 08/03/22 12:18 08/03/22 12:18 Temperature 97.4 F L Pulse Rate 87 78 Respiratory Rate 18 Blood Pressure 129/79 140/78 Pulse Oximetry 97 99 Oxygen Delivery Method Room Air 08/03/22 12:30 08/03/22 12:30 08/03/22 13:00 Temperature Pulse Rate 75 Respiratory Rate Blood Pressure 125/75 111/71 Pulse Oximetry 98 Oxygen Delivery Method 08/03/22 13:00 08/03/22 13:30 08/03/22 13:30 Temperature Pulse Rate 79 72 Respiratory Rate Blood Pressure 111/76 Pulse Oximetry 99 99 Oxygen Delivery Method Room Air 08/03/22 17:54 Temperature Pulse Rate 72 Respiratory Rate Blood Pressure 121/75 Pulse Oximetry 96 Oxygen Delivery Method Room Air MDM - OB/Uterine Contractions <Brendan Hernandez PA-C - Last Filed: 08/03/22 17:59> Lab Data 08/03/22 12:45 08/03/22 12:45 Labs: Lab Results 08/03/22 08/03/22 08/03/22 Range/Units 12:45 12:45 16:40 WBC 7.5 (4.5-11.0) X10^3/uL RBC 4.68 (4.0-5.2) X10^6/uL Hgb 13.1 (12.0-16.0) g/dL Hct 39.1 (36-46) % MCV 83.5 (80-100) fL MCH 28.0 (26-34) PG MCHC 33.6 (30-36) % RDW 13.7 (11.6-14.8) % Plt Count 276 (150-400) X10^3/uL Neut % (Auto) 69.8 (50-75) % Lymph % (Auto) 22.4 L (25-40) % [place] % (Auto) 6.4 (3-14) % Eos % (Auto) 0.9 L (2-4) % Baso % (Auto) 0.5 (0-2) % Neut # (Auto) 5200 (3867-0418) /uL Lymph # (Auto) 1700 (1812-8832) /uL [place] # (Auto) 500 (0-900) /uL Eos # (Auto) 100 (0-450) /uL Baso # (Auto) 0 (0-100) /uL Sodium 138 (137-145) mmol/L Potassium 4.2 (3.4-5.1) mmol/L Chloride 106 (98-107) mmol/L Carbon Dioxide 25 (22-32) mmol/L BUN 9 (7-17) mg/dL Creatinine 0.69 (0.52-1.04) mg/dL Estimated GFR > 60 (>60) mL/min BUN/Creatinine Ratio 13.0 (6-22) Glucose 95 (70-100) mg/dL Calcium 8.7 (8.4-10.2) mg/dL Total Bilirubin 0.4 (0.2-1.3) mg/dL AST 19 (14-36) IU/L ALT 14 (<35) IU/L Alkaline Phosphatase 103 (38-126) U/L Total Protein 7.9 (6.3-8.2) g/dL Albumin 4.5 (3.5-5.0) g/dL Globulin 3.4 (1.7-4.1) g/dL Albumin/Globulin Ratio 1.3 (1.0-2.8) HCG, Quant 6.5 mIU/mL Ur Chlamydia DNA (PCR) Not detected N gonorrhoeae DNA (PCR) Not detected MDM Narrative Medical decision making narrative: 22-year-old female presents to the ED with 5 days of vaginal bleeding. Concern for threatened miscarriage. Obtained labs, ultrasound. Ultrasound shows a small anechoic focus in the endometrial cavity that might represent a gestational sac, no definite IUP identified. Possible gestational sac is dated at about 5 weeks and 0 days. Patient's LMP was 05/30/2022 which will put patient at 9 weeks gestation. Patient's vaginal bleeding likely due to a threatened miscarriage. Patient has some vaginal lesions with foul-smelling vaginal discharge, is positive for bacterial vaginosis. Will start patient on metronidazole. Also ordered bacterial swab, viral swab, GC. Will let patient know of results when they come in. Patient agrees to follow-up with Dr. Metz for both the vaginal lesions as well as the vaginal bleeding as soon as possible. ED return precautions were discussed with patient. Patient verbalized understanding. Medical records reviewed: Yes <Kb Vincent, - Last Filed: 08/04/22 07:22> Lab Data Labs: Lab Results 08/03/22 08/03/22 08/03/22 Range/Units 12:45 12:45 16:40 WBC 7.5 (4.5-11.0) X10^3/uL RBC 4.68 (4.0-5.2) X10^6/uL Hgb 13.1 (12.0-16.0) g/dL Hct 39.1 (36-46) % MCV 83.5 (80-100) fL MCH 28.0 (26-34) PG MCHC 33.6 (30-36) % RDW 13.7 (11.6-14.8) % Plt Count 276 (150-400) X10^3/uL Neut % (Auto) 69.8 (50-75) % Lymph % (Auto) 22.4 L (25-40) % [place] % (Auto) 6.4 (3-14) % Eos % (Auto) 0.9 L (2-4) % Baso % (Auto) 0.5 (0-2) % Neut # (Auto) 5200 (0904-4829) /uL Lymph # (Auto) 1700 (2426-8473) /uL [place] # (Auto) 500 (0-900) /uL Eos # (Auto) 100 (0-450) /uL Baso # (Auto) 0 (0-100) /uL Sodium 138 (137-145) mmol/L Potassium 4.2 (3.4-5.1) mmol/L Chloride 106 (98-107) mmol/L Carbon Dioxide 25 (22-32) mmol/L BUN 9 (7-17) mg/dL Creatinine 0.69 (0.52-1.04) mg/dL Estimated GFR > 60 (>60) mL/min BUN/Creatinine Ratio 13.0 (6-22) Glucose 95 (70-100) mg/dL Calcium 8.7 (8.4-10.2) mg/dL Total Bilirubin 0.4 (0.2-1.3) mg/dL AST 19 (14-36) IU/L ALT 14 (<35) IU/L Alkaline Phosphatase 103 (38-126) U/L Total Protein 7.9 (6.3-8.2) g/dL Albumin 4.5 (3.5-5.0) g/dL Globulin 3.4 (1.7-4.1) g/dL Albumin/Globulin Ratio 1.3 (1.0-2.8) HCG, Quant 6.5 mIU/mL Ur Chlamydia DNA (PCR) Not detected N gonorrhoeae DNA (PCR) Not detected Discharge Plan Departure Patient Disposition: Home Clinical Impression: Vaginal bleeding affecting early , Bacterial vaginosis Instructions: DI for Bacterial Vaginosis, DI for Vaginal Bleeding During Activity Restrictions/Additional Instructions: You were evaluated in the ED today for vaginal bleeding during as well as a vaginal rash. Your ultrasound shows a possible 5 week old gestational sac, and your beta hCG today is 6.5. The beta HCG has come down. Overall it is likely that you might be experiencing a miscarriage. Please follow-up with your OBGYN Dr. Metz as soon as possible. You were also evaluated for a vaginal rash and discomfort, you are being treated with a antibiotic for bacterial vaginosis. There are some other tests that are outstanding and we will call you if we find any abnormal results. Please return to the ED if your bleeding increases, you are lightheaded, you have worsening abdominal pain. Prescriptions: New metronidazole 500 mg tablet 500 mg PO BID 7 Days Qty: 14 0RF No Action prenat.vits,ulices,sxa-nfry-pqnkr Tablet 1 tab PO DAILY doxylamine succinate 25 mg tablet 50 mg PO BEDTIME PRN (Reason: Allergy Symptoms) pyridoxine (vitamin B6) 50 mg tablet 50 mg PO DAILY ondansetron 4 mg tablet,disintegrating 4 mg PO Q6H PRN (Reason: nausea and vomiting) Qty: 20 4RF ibuprofen 600 mg Tablet 600 mg PO Q6HR PRN (Reason: Pain, Mild (1-3)) Qty: 60 2RF Referrals: Provider,Juani ZHANG [Primary Care Provider] - Stand Alone Forms: Patient Portal/API <Kb Vincent DO - Last Filed: 08/04/22 07:22> Cosign ED Attending Carolineature Attestation: I was immediately available in the department for consultation. Documentation has been reviewed. I agree with assessment and plan.
[2022-08-03 17:54] VITALS: BP 121/75; PULSE 72; O2SAT 96
[2022-08-03 19:10] LABS: Urine N gonorrhoeae NOT DETECTED
[2022-08-03 19:13] LABS: Urine Chlamydia NOT DETECTED
== END 2022-08-03 17:54 | disposition home or self-care (01) ==
PROVIDERS: Emergency Medicine; Emergency Provider Student in an Organized Health Care Education/Training Program
DX: O20.9 Hemorrhage in early pregnancy, unspecified (principal); N76.0 Acute vaginitis; Z3A.01 Less than 8 weeks gestation of pregnancy
CPT/HCPCS: 36415; 76801; 80053; 84702; 85025; 87070; 87077; 87147; 87205; 87210; 87491; 87591; 99283; 99284

== ENCOUNTER 2023-01-05 18:47 | Emergency (ER) | payer OTHER, SELFPAY ==
[2023-01-05 19:09] VITALS: BP 128/82; PULSE 98; RESP 16; TEMP 36.9; O2SAT 99; BMI 28.9
--- NOTE | 2023-01-05 19:14 | DI.RAD.S_ITS ---
PROCEDURE: XR FOOT LT MIN 3V INDICATIONS: injury TECHNIQUE: 3 views of the foot were acquired. COMPARISON: [facility], CR, XR ANKLE LT MIN 3V, 01/05/2023, 19:20. FINDINGS: Bones: No fractures or dislocations. No suspicious bony lesions. Incidental note is made of a bipartite medial sesamoid bone. Soft tissues: No tibiotalar joint effusion. Achilles tendon appears normal. IMPRESSION: No displaced fractures are seen on these plain films. If there is focal tenderness, or other clinical concern for a fracture not seen on these images in this patient with a given history of trauma, please consider a dedicated CT or a short-term followup plain film series (in 1-2 weeks) for further evaluation. Dictated by: Roberto Carlos Segura M.D. on 01/05/2023 at 18:47 Approved by: Roberto Carlos Segura M.D. on 01/05/2023 at 18:48
--- NOTE | 2023-01-05 19:15 | DI.RAD.S_ITS ---
PROCEDURE: XR ANKLE LT MIN 3V INDICATIONS: injury TECHNIQUE: 3 views of the ankle were acquired. COMPARISON: [facility], CR, XR FOOT LT MIN 3V, 01/05/2023, 19:20. FINDINGS: Bones: No fractures or dislocations. Ankle mortise is normally aligned. No suspicious bony lesions. Soft tissues: No tibiotalar joint effusion. Achilles tendon appears normal. IMPRESSION: No displaced fracture is seen on these plain films. Dictated by: Roberto Carlos Segura M.D. on 01/05/2023 at 18:47 Approved by: Roberto Carlos Segura M.D. on 01/05/2023 at 18:47
--- NOTE | 2023-01-05 19:17 | ED_ITS ---
HPI - Extremity Injury (Lower) General Chief Complaint: Extremity Injury, Lower Stated Complaint: possible broken L/foot Time Seen by Provider: 01/05/23 19:17 Source: patient Mode of arrival: Wheelchair History of Present Illness HPI Narrative: 22-year-old female nonsmoker with noncontributory medical history presents with a chief complaint of an accidental injury to her left foot. She was building a rock tower in the rocks tumbled and fell on the dorsum of her left foot. She now has pain with ambulation and a superficial abrasion. She has some tingling but denies any weakness. She is otherwise well and free of complaint Related Data Home Medications Medication Instructions Recorded Confirmed doxylamine succinate 25 mg tablet 50 mg PO BEDTIME PRN Allergy 03/23/21 07/29/22 Symptoms prenat.vits,ulices,[id number] 1 tab PO DAILY 03/23/21 07/29/22 pyridoxine (vitamin B6) 50 mg 50 mg PO DAILY 03/23/21 07/29/22 tablet Previous Rx's Medication Instructions Recorded ondansetron 4 mg disintegrating 4 mg PO Q6H PRN nausea and 07/24/21 tablet vomiting #20 tabs ibuprofen 600 mg tablet 600 mg PO Q6HR PRN Pain, Mild 11/01/21 (1-3) #60 tabs Allergies Allergy/AdvReac Type Severity Reaction Status Date / Time No Known Drug Allergies Allergy Verified 01/05/23 19:09 Review of Systems Review of Systems Narrative: GENERAL: Denies chills, fatigue, malaise, fever, sweats. HEENT: Denies sinus pain, ear pain, sore throat, difficulty swallowing, dizziness. RESPIRATORY: Denies dyspnea, cough, wheezing, hemoptysis, sputum. CARDIOVASCULAR: Denies chest pain, palpitations, orthopnea, edema, GASTROINTESTINAL: Denies nausea, vomiting, abdominal pain, diarrhea, constipation, melena. : Denies dysuria, frequency, incontinence, hematuria, urinary retention. MUSCULOSKELETAL: See HPI SKIN: Denies rash, skin lesions, or other NEUROLOGIC: See HPI PSYCHIATRIC: No concerning psychosocial issues. 12 point review of systems is negative except for those stated above Patient History Medical History COVID-19 Social History marital status: unmarried,single (living seperately for now, plans to move in) household members: none lives independently: Yes caregiver/support person: Yes housing: other ([employer]) pets and animals: No education level: other () occupational status: employed current occupational exposures/hazards: No travel history: over 6 months ago ([place] for 2 months) seatbelt use: always water heater temp set < 120 deg: Yes (will check) working smoke detector in home: Yes fire extinguisher in home: Yes carbon monox detector in home: Yes firearms in home: No do you feel safe at home: Yes Smoking Status: Never smoker alcohol intake: former substance use type: does not use well-balanced diet: daily or most days daily servings fruits/ve-1 caffeine: No eating out: 1-3 times/week Type(s) of exercise: walking Smoking Status: Never smoker alcohol intake frequency: holidays/special occasions only Substance Use Type: does not use Exam Narrative Exam Narrative: GEN: AOx3 and in mild distress EYES: Pupils are equal, round, and reactive to light and accommodation. Extraoccular muscles are intact bilaterally. There is no subconjunctival hemorrhage or exudate. CHEST: Lungs are clear to auscultation bilaterally and free of wheezes, rales, or rhonchi. Heart rate is regular rhythm, there are no murmurs, clicks, rubs, or gallops. There is no chest wall tenderness. ABD: Abdomen is soft and nontender. There is no guarding or rebound. Bowel sounds are normal in all 4 quadrants. There is no mass or organomegaly. EXT: Left foot with superficial abrasion overlying in step, minimal swelling, no obvious deformity, no laceration, bleeding or foreign body, neurovascular intact distal to the injury, no pain over lateral or medial malleolus, no ligamentous instability SKIN: Warm, pink, and dry. No erythema or rash Initial Vital Signs Initial Vital Signs: Vital Signs Temperature 98.4 F 01/05/23 19:09 Pulse Rate 98 H 01/05/23 19:09 Respiratory Rate 16 01/05/23 19:09 Blood Pressure 128/82 01/05/23 19:09 Pulse Oximetry 99 01/05/23 19:09 Oxygen Delivery Method Room Air 01/05/23 19:09 Procedures Orthopedic Splinting/Casting Injury #1: Side: left Lower Extremity Injury Location: foot Lower Extremity Immobilizer: post-op shoe Other Orthopedic Equipment: crutches Post splinting neuro exam: intact Post splinting vascular exam: intact Placed by: Nursing Course Orders Ordered: ED Orders 01/05/23 19:14 XR foot LT min 3V Stat 01/05/23 19:15 XR ankle LT min 3V Stat Discontinued Medications Acetaminophen (Acetaminophen 325 Mg Tablet) 975 mg PO NOW ONE Stop: 01/05/23 19:18 Last Admin: 01/05/23 20:44 Dose: 975 mg Documented By: JASMYN Vital Signs Vital signs: Vital Signs - 8 hr 01/05/23 19:09 01/05/23 21:05 Temperature 98.4 F Pulse Rate 98 H 84 Respiratory Rate 16 16 Blood Pressure 128/82 128/65 Pulse Oximetry 99 100 Oxygen Delivery Method Room Air Room Air MDM - Extremity Injury (Lower) MDM Narrative Medical decision making narrative: [22] year old patient presents with left foot crush injury Multiple etiologies for patient's symptoms considered including, but not limited to: [Contusion versus fracture versus other] Prior Charts reviewed in our EMR Primary Historian: patient Imaging reviewed: Foot and ankle x-rays demonstrate Patient's history and physical exam are reassuring, she is an isolated injury to the dorsum of her left foot with no obvious deformity, superficial abrasion but no laceration or foreign body, neurovascularly intact, imaging reassuring and no evidence of fracture or dislocation Findings and discharge diagnosis discussed with patient/family followed by verbalization of understanding Return precautions discussed with patient/family whom verbalize understanding of diagnosis and plan Discharge Plan Departure Patient Disposition: Home Clinical Impression: Contusion of foot, left Instructions: DI for Contusion Activity Restrictions/Additional Instructions: *You have been diagnosed with [left foot contusion] *What to do: *Please continue to take your regular medications as directed. [ ] New medication prescriptions sent to your pharmacy: [ ] [ ] New medication written as a paper prescription [ ] No new medications given *Please follow up with your primary care provider in 2-3 days, call for an appointment. Let them know you were seen in the Emergency Department and that we ask that you be seen in follow up. We will electronically transmit a record of today's note if your PCP is in our system *If you do not have a primary care provider please contact the [facility] Resource line at [phone]. They will ask some questions about your medical history and help get you set up with a doctor in the community. *Return to Emergency Department if you should have any new, worsening or concerning symptoms, such as [fever greater than 101 F, shaking chills, worsening pain, persistent vomiting or other bothersome symptoms] Prescriptions: No Action prenat.vits,ulices,[id number]-ebatq Tablet 1 tab PO DAILY doxylamine succinate 25 mg tablet 50 mg PO BEDTIME PRN (Reason: Allergy Symptoms) pyridoxine (vitamin B6) 50 mg tablet 50 mg PO DAILY ondansetron 4 mg tablet,disintegrating 4 mg PO Q6H PRN (Reason: nausea and vomiting) Qty: 20 4RF ibuprofen 600 mg Tablet 600 mg PO Q6HR PRN (Reason: Pain, Mild (1-3)) Qty: 60 2RF Referrals: ProviderJuani [Primary Care Provider] - Stand Alone Forms: Patient Portal/API
[2023-01-05] MEDS: ACETAMINOPHEN 325 MG TABLET 975 MG PO (20:44)
[2023-01-05 21:05] VITALS: BP 128/65; PULSE 84; RESP 16; O2SAT 100
== END 2023-01-05 21:06 | disposition home or self-care (01) ==
PROVIDERS: Emergency Provider Emergency Medicine
DX: S90.32XA Contusion of left foot, initial encounter (principal); W18.30XA Fall on same level, unspecified, initial encounter
CPT/HCPCS: 73610; 73630; 99283